=== PATIENT | female | born 1935 | race Caucasian/White ===

== ENCOUNTER 2017-10-17 23:53 | Inpatient (IN) | payer MEDICARE, OTHER ==
[~2017-10-17] VITALS: Ht 167.6 cm; Wt 63.3 kg
[2017-10-17 23:55] VITALS: BP 217/93; PULSE 94; RESP 18; TEMP 98.8; O2SAT 98
[2017-10-18] VITALS (10 sets, daily range): BP systolic 175–207; BP diastolic 83–104; PULSE 63–93; RESP 18–20; TEMP 97–98.8; O2SAT 95–98
[2017-10-18] MEDS ORDERED: SODIUM CHLORIDE 0.9% FLUSH 10 ML FLUSH IVF PRN (00:15)
--- NOTE | 2017-10-18 00:15 | PD ---
HPI Chief Complaint: Neuro Symptoms/ Deficits Time Seen by Provider: 00:14 Travel History International Travel<30 days: No Contact w/Intl Traveler<30days: No Traveled to known affect area: No History of Present Illness HPI 82-year-old female presents to the emergency department by private transportation for left lower extremity weakness since 2 PM on . This evening patient has had 2 falls when attempting to ambulate with assistance and walker use. Patient reports since she has otherwise needed to use counter or the wall to support her weight as she has had persistent weakness to the left lower extremity. Prior to afternoon she had been very independent and drove. Patient denies head injury. Patient denies neck pain back pain pelvic pain or extremity injury. Patient denies chest pain or palpitations or shortness breath. On when symptoms began she had nausea which has resolved and patient was reportedly dragging her leg at that time. Patient takes no blood thinning agents. Patient is under the care of Dr. Thompson and had recently been referred to cardiology Dr. Gates, patient reports she doesn't know why. Patient has not yet seen the service counter cashier and is not certain as to why she was referred to a service counter cashier. Patient has not been having any chest pains or rhythm disturbance or near syncope. Patient is not treated for hypertension or dyslipidemia. Patient denies diabetes. No tobacco use history. PFSH Past Medical History Narrative Medical denies pmh; no tobacco; nursing notes reviewed ?: Not Social History Tobacco Use: No Allergies-Medications (Allergen,Severity, Reaction): Coded Allergies: No Known Allergies (Verified Allergy, Unknown, 10/18/17) Reported Meds & Prescriptions Reported Meds & Active Scripts Active No Active Prescriptions or Reported Medications Review of Systems Except as stated in HPI: all other systems reviewed are Neg General / Constitutional: No: Fever, Chills Eyes: No: Diploplia, Blurred Vision, Photophobia, Visual changes HENT: No: Headaches, Lightheadedness, Neck Pain Cardiovascular: No: Chest Pain or Discomfort, Palpitations, Diaphoresis Respiratory: No: Shortness of Breath Gastrointestinal: Positive: Nausea (), No: Vomiting, Abdominal Pain Genitourinary: No: Decreased Urinary Output, Flank Pain Musculoskeletal: Positive: Weakness (LLE), No: Myalgias, Arthralgias, Cramping , Edema, Pain Skin: No Rash Neurologic: Positive: Weakness, Focal Abnormalities (LLE weakness), No: Dizziness, Syncope, Headache, Paresthesia, Seizures Psychiatric: No: Anxiety Endocrine: No: Heat Intolerance Hematologic/Lymphatic: No: Easy Bruising Physical Exam Narrative GENERAL: Well-developed well-nourished female in no acute distress no respiratory distress GCS 15 SKIN: Warm and dry. HEAD: Atraumatic. Normocephalic. Scalp soft nontender without soft tissue swelling and abrasion laceration or bony abnormalities EYES: Pupils equal and round. Extraocular muscles intact. No scleral icterus. No injection or drainage. ENT: No nasal bleeding or discharge. Mucous membranes pink and moist. Airway is patent. NECK: Trachea midline. No JVD. CARDIOVASCULAR: Irregularly irregular rate and rhythm. RESPIRATORY: No accessory muscle use. Clear to auscultation. Breath sounds equal bilaterally. GASTROINTESTINAL: Abdomen soft, non-tender, nondistended. Hepatic and splenic margins not palpable. MUSCULOSKELETAL: Extremities without clubbing, cyanosis, or edema. No obvious deformities. NEUROLOGICAL: Awake and alert. No obvious cranial nerve deficits. Motor grossly within normal limits with 5 out of 5 muscle strength in the arms and legs except for left lower extremity 4 over 5 motor strength. Sensory exam intact grossly. No pronator drift. Mild left lower extremity limb ataxia normal finger to nose. Normal speech. PSYCHIATRIC: Appropriate mood and affect; insight and judgment normal. Data Data Last Documented VS Vital Signs Date Time Temp Pulse Resp B/P (MAP) Pulse Ox O2 Delivery O2 Flow Rate FiO2 10/18/17 01:19 82 18 198/83 (121) 98 Room Air 10/17/17 23:55 98.8 Orders Orders Electrocardiogram (10/18/17 00:14) Prothrombin Time / Inr (Pt) (10/18/17 00:14) Act Partial Throm Time (Ptt) (10/18/17 00:14) Complete Blood Count With Diff (10/18/17 00:14) Comprehensive Metabolic Panel (10/18/17 00:14) Creatine Kinase (Cpk) (10/18/17 00:14) Troponin I (10/18/17 00:14) Urinalysis - C+S If Indicated (10/18/17 00:14) Ct Brain W/O Iv Contrast(Rout) (10/18/17 00:14) Chest, Single Ap (10/18/17 00:14) Ecg Monitoring (10/18/17 00:14) Iv Access Insert/Monitor (10/18/17 00:14) Oximetry (10/18/17 00:14) Blood Glucose (10/18/17 00:14) Sodium Chloride 0.9% Flush (Ns Flush) (10/18/17 00:15) Metoprolol Tartrate (Lopressor) (10/18/17 01:45) Metoprolol Tartrate (Lopressor) (10/18/17 09:00) Echo 2d Comp With Doppler (10/18/17 ) Place In Observation (10/18/17 ) Vital Signs (Adult) Q4H (10/18/17 01:44) Activity Oob With Assistance (10/18/17 01:44) Reprint Sorter / Telemetry .CONTINUOUS (10/18/17 01:44) Intake + Output OFE.QSHIFT (10/18/17 01:44) Diet Heart Healthy (10/18/17 Breakfast) Sodium Chlor 0.9% 1000 Ml Inj (Ns 1000 M (10/18/17 01:44) Sodium Chloride 0.9% Flush (Ns Flush) (10/18/17 01:45) Sodium Chloride 0.9% Flush (Ns Flush) (10/18/17 09:00) Ondansetron Inj (Zofran Inj) (10/18/17 01:45) Comprehensive Metabolic Panel (10/19/17 06:00) Complete Blood Count With Diff (10/19/17 06:00) Troponin I (10/18/17 06:00) Troponin I (10/18/17 12:00) Pt Request For Service (10/18/17 01:44) Case Management Consult (10/18/17 01:44) Heparin Inj (Heparin Inj) (10/18/17 09:00) Acetaminophen (Tylenol) (10/18/17 01:45) Acetamin-Hydrocod 325-5 Mg ([place] 5-325 (10/18/17 01:45) Morphine Inj (Morphine Inj) (10/18/17 01:45) Docusate Sodium-Senna (Minoo-Colace) (10/18/17 09:00) Magnesium Hydroxide Liq (Milk Of Magnesi (10/18/17 01:45) Sennosides (Senokot) (10/18/17 01:45) Bisacodyl Supp (Dulcolax Supp) (10/18/17 01:45) Lactulose Liq (Lactulose Liq) (10/18/17 01:45) Admit Order (Ed Use Only) (10/18/17 ) Reprint Sorter / Telemetry OFE.Q8H (10/18/17 01:54) Activity Bed Rest (10/18/17 01:54) Notify Dr: Other (10/18/17 01:54) Labs Laboratory Tests Test 10/18/17 00:45 White Blood Count 7.9 TH/MM3 Red Blood Count 4.88 MIL/MM3 Hemoglobin 14.5 GM/DL Hematocrit 44.4 % Mean Corpuscular Volume 91.0 FL Mean Corpuscular Hemoglobin 29.7 PG Mean Corpuscular Hemoglobin Concent 32.6 % Red Cell Distribution Width 13.4 % Platelet Count 333 TH/MM3 Mean Platelet Volume 8.1 FL Neutrophils (%) (Auto) 61.0 % Lymphocytes (%) (Auto) 25.7 % Monocytes (%) (Auto) 9.3 % Eosinophils (%) (Auto) 3.0 % Basophils (%) (Auto) 1.0 % Neutrophils # (Auto) 4.9 TH/MM3 Lymphocytes # (Auto) 2.0 TH/MM3 Monocytes # (Auto) 0.7 TH/MM3 Eosinophils # (Auto) 0.2 TH/MM3 Basophils # (Auto) 0.1 TH/MM3 CBC Comment DIFF FINAL Differential Comment Prothrombin Time 10.9 SEC Prothromb Time International Ratio 1.0 RATIO Activated Partial Thromboplast Time 27.1 SEC Urine Color STRAW Urine Turbidity SLIGHT Urine pH 7.0 Urine Specific [place] 1.008 Urine Protein NEG mg/dL Urine Glucose (UA) NEG mg/dL Urine Ketones NEG mg/dL Urine Occult Blood TRACE Urine Nitrite NEG Urine Bilirubin NEG Urine Leukocyte Esterase NEG Urine RBC 0-3 /hpf Urine WBC 0-2 /hpf Urine Squamous Epithelial Cells 0-5 /hpf Urine Amorphous Sediment FEW Urine Bacteria NONE /hpf Microscopic Urinalysis Comment CULT NOT INDICATED Blood Urea Nitrogen 21 MG/DL Creatinine 0.92 MG/DL Random Glucose 113 MG/DL Total Protein 7.2 GM/DL Albumin 3.5 GM/DL Calcium Level 10.2 MG/DL Alkaline Phosphatase 75 U/L Aspartate Amino Transf (AST/SGOT) 10 U/L Alanine Aminotransferase (ALT/SGPT) 17 U/L Total Bilirubin 0.3 MG/DL Sodium Level 137 MEQ/L Potassium Level 4.1 MEQ/L Chloride Level 104 MEQ/L Carbon Dioxide Level 27.1 MEQ/L Anion Gap 6 MEQ/L Estimat Glomerular Filtration Rate 58 ML/MIN Total Creatine Kinase 52 U/L Troponin I LESS THAN 0.02 NG/ML MDM Medical Decision Making Medical Screen Exam Complete: Yes Emergency Medical Condition: Yes Medical Record Reviewed: Yes Interpretation(s) CBC & BMP Diagram 10/18/17 00:45 Total Protein 7.2, Albumin 3.5, Calcium Level 10.2 H, Alkaline Phosphatase 75, Aspartate Amino Transf (AST/SGOT) 10 L, Alanine Aminotransferase (ALT/SGPT) 17, Total Bilirubin 0.[address] 10/18/1713 Signed Impressions: Service Date/Time: Wednesday, October 18, 2017 00:30 - CONCLUSION: 1. No acute findings in the brain. 2. 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 3. Bilateral maxillary and ethmoid sinus disease. Jamil Fleming MD Chest X-Ray 10/18/174 Signed Impressions: Service Date/Time: Wednesday, October 18, 2017 00:28 - CONCLUSION: Cardiomegaly. No focal infiltrates seen. Jamil Fleming MD EKG atrial fibrillation rate 77 incomplete right bundle branch block QS anteroseptally V1 to V3 and Q wave noted inferiorly in lead 3 and aVF Differential Diagnosis New-onset left lower extremity weakness, TIA, CVA, lumbar radiculopathy, cervical radiculopathy, HTN, a fib/flutter Narrative Course Patient placed on security monitor with continuous pulse oximetry IV access obtained and EKG performed which confirms security monitor atrial fibrillation with controlled ventricular rate; CT brain noncontrast ordered Specimen collected and sent for resulting Patient resting comfortably voicing no complaints or concerns at this time Patient is noted to have weakness of the left lower extremity 4 over [address] brain noncontrast shows old right lacunar infarct no acute infarct noted Patient will be admitted for new onset left lower extremity weakness that is persistent concerning for CVA with atrial fibrillation prior history of atrial fibrillation the patient and her spouse and hypertension again no history of hypertension and patient her spouse. Patient has been discussed with on-call medicine service with plan to admit as observation for TIA new-onset atrial fibrillation with controlled rate and hypertension Physician Communication Physician Communication discussed with Dr Gutierres --OBS Diagnosis Primary Impression: CVA (cerebral vascular accident) Additional Impressions: Atrial fibrillation HTN (hypertension) Admitting Information Admitting Physician Requests: Observation Scripts No Active Prescriptions or Reported Meds Marisabel Carpenter MD Oct 18, 2017 00:15
--- NOTE | 2017-10-18 00:39 | RADRPT ---
EXAM DATE/TIME: 10/18/2017 00:28 [facility] COMPARISON: No previous studies available for comparison. INDICATIONS : Syncope. MEDICAL HISTORY : None. SURGICAL HISTORY : None. ENCOUNTER: Initial ACUITY: 1 day PAIN SCORE: 2/10 LOCATION: Bilateral chest FINDINGS: A single view of the chest demonstrates the lungs to be symmetrically aerated without evidence of mas s, infiltrate or effusion. No evidence of pneumothorax. The heart is moderately enlarged. The cent ral bronchopulmonary markings well delineated. Orthopedic anchors in the proximal right humerus. CONCLUSION: Cardiomegaly. No focal infiltrates seen. Jamil Fleming MD on October 18, 2017 at 0:37 Board Certified Radiologist. This report was verified electronically.
[2017-10-18 00:52] LABS: GLUCOSE,URINE NEG (NEG); KETONE, URINE NEG (NEG); NITRITE,URINE NEG (NEG)
[2017-10-18 00:54] LABS: AUTOMATED NEUTROPHIL # 4.9 TH/MM3 (1.8-7.7); BASOPHIL # 0.1 TH/MM3 (0-0.2); EOSINOPHIL # 0.2 TH/MM3 (0-0.4); HEMATOCRIT 44.4 % (35.0-46.0); HEMO FLAGS DIFF FINAL; LYMPH % 25.7 % (9.0-44.0); MEAN CORPUSCULAR HEMOGLOBIN 29.7 PG (27.0-34.0); MEAN CORPUSCULAR HGB CONC 32.6 % (32.0-36.0); MONO % 9.3 % (0.0-8.0); PLATELET COUNT 333 TH/MM3 (150-450); RED BLOOD COUNT 4.88 MIL/MM3 (4.00-5.30); RED CELL DISTRIBUTION WIDTH 13.4 % (11.6-17.2); WHITE BLOOD COUNT 7.9 TH/MM3 (4.0-11.0)
--- NOTE | 2017-10-18 00:57 | RADRPT ---
EXAM DATE/TIME: 10/18/2017 00:30 [facility] COMPARISON: No previous studies available for comparison. INDICATIONS : Left leg weakness. Patients states she keeps falling. RADIATION DOSE: 59.93 CTDIvol (mGy) MEDICAL HISTORY : None SURGICAL HISTORY : None. ENCOUNTER: Initial ACUITY: 1 day PAIN SCALE: 0/10 LOCATION: cranial TECHNIQUE: Multiple contiguous axial images were obtained of the head. Using automated exposure control and adj ustment of the mA and/or kV according to patient size, radiation dose was kept as low as reasonably a chievable to obtain optimal diagnostic quality images. DICOM format image data is available electro nically for review and comparison. FINDINGS: CEREBRUM: The ventricles are normal for age. No evidence of midline shift, mass lesion, hemorrhage or acute in farction. 1 cm lacunar infarct in the right basal ganglia and head of caudate. No extra-axial fluid collections are seen. POSTERIOR FOSSA: The cerebellum and brainstem are intact. The 4th ventricle is midline. The cerebellopontine angle i s unremarkable. EXTRACRANIAL: The visualized portion of the orbits is intact. Mucosal thickening and partial opacification of mult iple bilateral ethmoid air cells and mucosal thickening in the dependent maxillary sinuses. SKULL: The calvaria is intact. No evidence of skull fracture. CONCLUSION: 1. No acute findings in the brain. 2. 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 3. Bilateral maxillary and ethmoid sinus disease. Jamil Fleming MD on October 18, 2017 at 0:52 Board Certified Radiologist. This report was verified electronically.
[2017-10-18 01:00] LABS: BLOOD, URINE TRACE (NEG); URINE COLOR STRAW (YELLW/STRAW); WBC, URINE 0-2 /hpf (0-5)
[2017-10-18 01:01] LABS: CHLORIDE 104 MEQ/L (98-107); COMMENT (UR) CULT NOT INDICATED; CULTURE IF INDICATED CULT NOT INDICATED; POTASSIUM 4.1 MEQ/L (3.5-5.1); RBC, URINE 0-3 /hpf (0-3); SODIUM (NA) 137 MEQ/L (136-145); SQUAMOUS EPITHELIAL CELL URINE 0-5 /hpf (0-5)
[2017-10-18 01:05] LABS: ANION GAP 6 MEQ/L (5-15); APTT (PATIENT) 27.1 SEC (24.3-30.1); BICARBONATE 27.1 MEQ/L (21.0-32.0); BLOOD UREA NITROGEN 21 MG/DL (7-18); PROTHROMBIN TIME - PATIENT 10.9 SEC (9.8-11.6)
[2017-10-18 01:08] LABS: ALT (GPT) 17 U/L (10-53); AST (GOT) 10 U/L (15-37); GLOMERULAR FILTRATION RATE 58 ML/MIN (>89)
[2017-10-18 01:10] LABS: TOTAL BILIRUBIN ADULT 0.3 MG/DL (0.2-1.0)
[2017-10-18 01:11] LABS: ALKALINE PHOSPHATASE 75 U/L (45-117)
[2017-10-18 01:19] LABS: CREATINE KINASE 52 U/L (26-192)
[2017-10-18] MEDS ORDERED: BISACODYL 10 MG SUPP RECTAL PRN (01:45)
[2017-10-18] MEDS ORDERED: METOPROLOL TARTRATE 25 MG TAB PO ONE (01:45)
[2017-10-18] MEDS ORDERED: MAGNESIUM HYDROXIDE SUSP 30 ML CUP PO PRN (01:45)
[2017-10-18] MEDS ORDERED: LACTULOSE SYRUP 20 GM/30 ML CUP PO PRN (01:45)
[2017-10-18] MEDS ORDERED: ACETAMINOPHEN/HYDROcodone 325 MG/5 MG TAB PO PRN (01:45)
[2017-10-18] MEDS ORDERED: MORPHINE SULFATE 4 MG/ML INJ IV PUSH PRN (01:45)
[2017-10-18] MEDS ORDERED: ONDANSETRON HCL 4 MG/2 ML VIAL IVP PRN (01:45)
[2017-10-18] MEDS ORDERED: SODIUM CHLORIDE 0.9% FLUSH 10 ML FLUSH IV FLUSH PRN (01:45)
[2017-10-18] MEDS ORDERED: SENNOSIDES 8.6 MG TAB PO PRN (01:45)
[2017-10-18] MEDS ORDERED: ACETAMINOPHEN 325 MG TAB PO PRN (01:45)
[2017-10-18] MEDS: SODIUM CHLOR 0.9% 1000 ML INJ 1,000 ML IV SCH ×3 (02:09→17:34)
[2017-10-18] MEDS ORDERED: MORPHINE SULFATE 2 MG/ML INJ IV PRN (02:15)
[2017-10-18] MEDS: METOPROLOL TARTRATE 25 MG TAB PO SCH ×4 (08:23→20:36)
[2017-10-18] MEDS: DOCUSATE SODIUM 50 MG/SENNA 8.6 MG TAB PO SCH ×2 (08:24→20:30)
[2017-10-18] MEDS: SODIUM CHLORIDE 0.9% FLUSH 10 ML FLUSH IV FLUSH SCH ×2 (08:24→20:42)
[2017-10-18] MEDS ORDERED: HEPARIN SODIUM - SQ 10,000 UNITS/ML VIAL SQ SCH (09:00)
--- NOTE | 2017-10-18 11:29 | HHI.HP ---
HPI Service [facility] Primary Care Physician Unknown Admission Diagnosis CVA, afib-new onset, htn Diagnoses: (1) CVA (cerebral vascular accident) (2) HTN (hypertension) (3) Atrial fibrillation Chief Complaint: Left sided weakness Fall x 3 Travel History International Travel<30 Days: No Contact w/Intl Traveler <30 Da: No Traveled to Known Affected Are: No History of Present Illness Written by Merly Holcomb, acting as scribe for Dr. Holguin on 10/18/17 at 11: 29. Mrs. Green is an 82-year-old female patient with a known medical history of HTN and hyperlipidemia who presented to the ED with left sided weakness and falls x 3. Patient states that around at 1400 she developed left lower extremity weakness and dizziness at work. She states she lost her balance and caught herself, did not hit her head or loose consciousness. Patient states she was taken home and rest overnight. On Friday she rested all day at home with continued left sided weakness. On Friday around dinner time she fell again in the kitchen, did not hit her head and no LOC at that time. Once again as patient was using the restroom later Friday night she fell again and at that time also had some memory problems which prompted her presentation to the ED. Patient denies any recent illness including any fever, chills, headache, vision changes, diplopia, loss of consciousness, sore throat, shortness of breath, ab pain, n/v/d or dysuria. Review of Systems Constitutional: DENIES: Fever, Chills Eyes: DENIES: Blurred vision, Vision loss, Double Vision Ears, nose, mouth, throat: DENIES: Throat pain Respiratory: DENIES: Cough, Shortness of breath Cardiovascular: DENIES: Chest pain, Lower Extremity Edema Gastrointestinal: DENIES: Abdominal pain, Black stools, Bloody stools, Constipation, Diarrhea, Nausea, Vomiting Neurologic: COMPLAINS OF: Abnormal gait, Poor Balance, DENIES: Headache Psychiatric: DENIES: Anxiety Except as stated in HPI: all other systems reviewed are Neg Past Family Social History Past Medical History Hypertension Hyperlipidemia Past Surgical History Hysterectomy Reported Medications Active No Active Prescriptions or Reported Medications Allergies: Coded Allergies: No Known Allergies (Verified Allergy, Unknown, 10/18/17) Family History Maternal medical history significant for cardiovascular disease. Social History Denies any current tobacco use. Admits to social drinking. Denies any illicit drug use. Physical Exam Vital Signs Vital Signs Date Time Temp Pulse Resp B/P (MAP) Pulse Ox O2 Delivery O2 Flow Rate FiO2 10/18/17 07:50 98.8 77 20 195/90 (125) 95 10/18/17 03:00 97.3 76 20 197/97 (130) 96 10/18/17 02:45 93 10/18/17 02:28 84 18 98 10/18/17 01:19 82 18 198/83 (121) 98 Room Air 10/18/17 00:19 97 10/18/17 00:14 18 97 Room Air 10/17/17 23:55 98.8 94 18 217/93 (134) 98 Physical Exam GENERAL: This is a well-nourished, well-developed female patient, lying in bed in no apparent distress. SKIN: No rashes, ecchymoses or lesions. Warm and dry. HEENT: Atraumatic. Normocephalic. Pupils equal round and reactive. Extraocular motions intact. No scleral icterus. No injection or drainage. Nose without bleeding, purulent drainage or septal hematoma. Throat without erythema, tonsillar hypertrophy or exudate. Uvula midline. Airway patent. NECK: Trachea midline. No JVD. Supple. CARDIOVASCULAR: Irregular irregular rhythm. Without murmurs, gallops, or rubs. RESPIRATORY: Clear to auscultation. Breath sounds equal bilaterally. No wheezes , rales, or rhonchi. GASTROINTESTINAL: Abdomen soft, non-tender, nondistended. No guarding. MUSCULOSKELETAL: Extremities without clubbing, cyanosis, or edema. No joint tenderness, effusion, or edema noted. NEUROLOGICAL: Awake and alert. Cranial nerves II through XII intact. Motor and sensory grossly within normal limits. Five out of 5 muscle strength in right side, all muscle groups. Four out of 5 muscle strength in both left upper and lower extremities. Normal speech. Laboratory Laboratory Tests Test 10/18/17 00:45 10/18/17 06:50 White Blood Count 7.9 Red Blood Count 4.88 Hemoglobin 14.5 Hematocrit 44.4 Mean Corpuscular Volume 91.0 Mean Corpuscular Hemoglobin 29.7 Mean Corpuscular Hemoglobin Concent 32.6 Red Cell Distribution Width 13.4 Platelet Count 333 Mean Platelet Volume 8.1 Neutrophils (%) (Auto) 61.0 Lymphocytes (%) (Auto) 25.7 Monocytes (%) (Auto) 9.3 Eosinophils (%) (Auto) 3.0 Basophils (%) (Auto) 1.0 Neutrophils # (Auto) 4.9 Lymphocytes # (Auto) 2.0 Monocytes # (Auto) 0.7 Eosinophils # (Auto) 0.2 Basophils # (Auto) 0.1 CBC Comment DIFF FINAL Differential Comment Prothrombin Time 10.9 Prothromb Time International Ratio 1.0 Activated Partial Thromboplast Time 27.1 Urine Color STRAW Urine Turbidity SLIGHT Urine pH 7.0 Urine Specific [place] 1.008 Urine Protein NEG Urine Glucose (UA) NEG Urine Ketones NEG Urine Occult Blood TRACE Urine Nitrite NEG Urine Bilirubin NEG Urine Leukocyte Esterase NEG Urine RBC 0-3 Urine WBC 0-2 Urine Squamous Epithelial Cells 0-5 Urine Amorphous Sediment FEW Urine Bacteria NONE Microscopic Urinalysis Comment CULT NOT INDICATED Blood Urea Nitrogen 21 Creatinine 0.92 Random Glucose 113 Total Protein 7.2 Albumin 3.5 Calcium Level 10.2 Alkaline Phosphatase 75 Aspartate Amino Transf (AST/SGOT) 10 Alanine Aminotransferase (ALT/SGPT) 17 Total Bilirubin 0.3 Sodium Level 137 Potassium Level 4.1 Chloride Level 104 Carbon Dioxide Level 27.1 Anion Gap 6 Estimat Glomerular Filtration Rate 58 Total Creatine Kinase 52 Troponin I LESS THAN 0.02 LESS THAN 0.02 Result Diagram: 10/18/17 0045 10/18/17 0045 Imaging Last Impressions Head CT 10/18/1713 Signed Impressions: Service Date/Time: Wednesday, October 18, 2017 00:30 - CONCLUSION: 1. No acute findings in the brain. 2. 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 3. Bilateral maxillary and ethmoid sinus disease. Jamil Fleming MD Chest X-Ray 10/18/1713 Signed Impressions: Service Date/Time: Wednesday, October 18, 2017 00:28 - CONCLUSION: Cardiomegaly. No focal infiltrates seen. MD Shawn Wilson VTE Risk Assessment Caprini VTE Risk Assessment: Mod/High Risk (score >= 2) Caprini Risk Assessment Model Point Value = 1 Point Value = 2 Point Value = 3 Point Value = 5 Age 41-60 Minor surgery BMI > 25 kg/m2 Swollen legs Varicose veins or History of unexplained or recurrent spontaneous Oral contraceptives or hormone replacement Sepsis (< 1 month) Serious lung disease, including pneumonia (< 1 month) Abnormal pulmonary function Acute myocardial infarction Congestive heart failure (< 1 month) History of inflammatory bowel disease Medical patient at bed rest Age 61-74 Arthroscopic surgery Major open surgery (> 45 min) Laparoscopic surgery (> 45 min) Malignancy Confined to bed (> 72 hours) Immobilizing plaster cast Central venous access Age >= 75 History of VTE Family history of VTE Factor V Leiden Prothrombin [id number] Lupus anticoagulant Anticardiolipin antibodies Elevated serum homocysteine Heparin-induced thrombocytopenia Other congenital or acquired thrombophilia Stroke (< 1 month) Elective arthroplasty Hip, pelvis, or leg fracture Acute spinal cord injury (< 1 month) Prophylaxis Regimen Total Risk Factor Score Risk Level Prophylaxis Regimen 0-1 Low Early ambulation 2 Moderate Order ONE of the following: *Sequential Compression Device (SCD) *Heparin 5000 units SQ BID 3-4 Higher Order ONE of the following medications: *Heparin 5000 units SQ TID *Enoxaparin/Lovenox 40 mg SQ daily (WT < 150 kg, CrCl > 30 mL/min) *Enoxaparin/Lovenox 30 mg SQ daily (WT < 150 kg, CrCl > 10-29 mL/min) *Enoxaparin/Lovenox 30 mg SQ BID (WT < 150 kg, CrCl > 30 mL/min) AND/OR *Sequential Compression Device (SCD) 5 or more Highest Order ONE of the following medications: *Heparin 5000 units SQ TID (Preferred with Epidurals) *Enoxaparin/Lovenox 40 mg SQ daily (WT < 150 kg, CrCl > 30 mL/min) *Enoxaparin/Lovenox 30 mg SQ daily (WT < 150 kg, CrCl > 10-29 mL/min) *Enoxaparin/Lovenox 30 mg SQ BID (WT < 150 kg, CrCl > 30 mL/min) AND *Sequential Compression Device (SCD) Assessment and Plan Assessment and Plan Mrs. Green is an 82-year-old female patient with a known medical history of HTN and hyperlipidemia who presented to the ED with left sided weakness and falls x 3. Rule out acute CVA vs TIA suspect secondary to atrial fibrillation vs uncontrolled hypertension, presence left sided weakness and falls at home Atrial fibrillation, new onset CBC reviewed which is essentially unremarkable. BMP unremarkable. EKG reviewed with presence of atrial fibrillation, HR 77, controlled. Continue cardiac telemetry, monitor for any presence of cardiac telemetry. Brain CT reviewed showing no acute hemorrhage or mass effect. Old small lacunar infarcts in the right striatum. CXR reviewed showing cardiomegaly. No focal infiltrates seen. MRI/MRA brain ordered and pending. Follow. Aspirin 325 mg PO daily scheduled. Consider anticoagulation but will defer to neurology on this - may be high risk due to falls. Supplemental O2 to keep sats >92%. Supportive care. Lipid profile ordered. Follow. ECHO ordered and pending. Carotid ultrasound ordered was well. Follow. Consult placed to neurology, appreciate further input and recommendations. PT evaluation ordered, appreciate input. Nursing bedside swallow ordered. Hypertension, chronic: Systolic BP 190's, allow some permissive hypertension. Will start on Metoprolol 25 mg PO BID. Monitor BP trends. Dyslipidemia: Start on Atorvastatin. DVT Prophylaxis: SCDs. Heparin. This note was transcribed by sujatha Holcomb. I, Dr. Tamiko Holguin personally performed the history, physical exam, and medical decision making; and confirmed the accuracy of the information in the transcribed note. Authenticated by Dr. Tamiko Holguin on 10/18/17 at 12:52. Merly Holcomb Oct 18, 2017 11:29 Tamiko Holguin MD Oct 18, 2017 12:52
[2017-10-18] MEDS ORDERED: ASPIRIN 325 MG TAB PO SCH (12:00)
--- NOTE | 2017-10-18 12:51 | RADRPT ---
EXAM DATE/TIME: 10/18/2017 12:11 [facility] COMPARISON: No previous studies available for comparison. INDICATIONS : Transischemic attack. MEDICAL HISTORY : Hypercholesterolemia. Hypertension. Afib. SURGICAL HISTORY : Tonsillectomy. Hysterectomy. ENCOUNTER: Initial ACUITY: 1 day PAIN SCORE: 0/10 LOCATION: Bilateral neck PEAK SYSTOLIC VELOCITIES (cm/sec): ICA/CCA RATIO: Right: 1.4 Left: 0.9 ICA: Right: 60 Left: 63 CCA: Right: 44 Left: 69 ECA: Right: 74 Left: 62 VERTEBRAL: Right: 54 antegrade Left: 67 antegrade Elevated flow velocities and ICA/CCA ratios have been found to correlate with increased degrees of vessel stenosis, calculated as percentage of diameter relative to a normal segment of distal ICA/CCA FINDINGS: RIGHT CAROTID: No significant stenosis is visualized. The waveforms are within normal limits. LEFT CAROTID: No significant stenosis is visualized. The waveforms are within normal limits. VERTEBRAL ARTERIES: Antegrade flow is seen in both vertebral arteries. MISCELLANEOUS: None. CONCLUSION: No evidence of hemodynamically significant carotid stenosis. Sarabjit Damico MD on October 18, 2017 at 12:48 Board Certified Radiologist. This report was verified electronically.
--- NOTE | 2017-10-18 15:32 | ECHRPT ---
Indication: Cardiomyopathy, unspecified CONCLUSIONS Normal left ventricular size. EF=65% Wall thickness is measured at the upper limits of normal. The aortic root and proximal ascending aorta are not well visualized. No mitral valve stenosis [id number] mitral valve regurgitation. mild to mod aortic valve regurgitation. There is trace tricuspid valve regurgitationTrivial pulmonary valve regurgitation. The transthoracic study is normal by two-dimensional, color flow imaging and Doppler interrogation. BP: / HR: Rhythm: MEASUREMENTS (Male / Female) Normal Values Technical Quality:Good 2D ECHO LV Diastolic Diameter PLAX 3.2 cm 4.2 - 5.9 / 3.9 - 5.3 cm LV Systolic Diameter PLAX 2.4 cm IVS Diastolic Thickness 1.5 cm 0.6 - 1.0 / 0.6 - 0.9 cm LVPW Diastolic Thickness 1.1 cm 0.6 - 1.0 / 0.6 - 0.9 cm LV Relative Wall Thickness 0.8 RV Internal Dim ED PLAX 1.9 cm M-MODE Aortic Root Diameter MM 3.6 cm LA Systolic Diameter MM 3.6 cm LA Ao Ratio MM 1.0 AV Cusp Separation MM 1.6 cm DOPPLER AI Peak Velocity 491.0 cm/s AI Peak Gradient 96.4 mmHg AI Pressure Half Time 904.0 ms Mitral E Point Velocity 170.0 cm/s Mitral A Point Velocity 118.0 cm/s Mitral E to A Ratio 1.4 FINDINGS LEFT VENTRICLE Normal left ventricular size. Wall thickness is measured at the upper limits of normal. The left ventricular systolic function is normal with an estimated ejection fraction in the range of 60-65%. RIGHT VENTRICLE Normal right ventricular size and systolic function. LEFT ATRIUM The left atrial size is normal. RIGHT ATRIUM The right atrial size is normal. ATRIAL SEPTUM Normal atrial septal thickness without atrial level shunting by limited color doppler interrogation. AORTA The aortic root and proximal ascending aorta are not well visualized. MITRAL VALVE Structurally normal mitral valve. No mitral valve stenosis [id number] mitral valve regurgitati on. AORTIC VALVE Trileaflet aortic valve. Trace aortic valve regurgitation. TRICUSPID VALVE Structurally normal tricuspid valve. There is trace tricuspid valve regurgitation PULMONARY VALVE Trivial pulmonary valve regurgitation. VESSELS The inferior vena cava is normal in size. PERICARDIUM No pericardial effusion. Hadley Zayas MD, FACC, [facility] [place] (Electronically Signed) Final Date:18 October 2017 15:31
[2017-10-18] MEDS ORDERED: ENALAPRILAT 1.25 MG/ML VIAL IV PUSH PRN (16:00)
--- NOTE | 2017-10-18 16:09 | EKG ---
Date Performed: 10/18/2017 Time Performed: 00:26:20 PTAGE: 82 years EKG: ATRIAL FIBRILLATION INCOMPLETE RIGHT BUNDLE BRANCH BLOCK INFERIOR MYOCARDIAL INFARCTION ABN ORMAL ECG NO PREVIOUS TRACING DOCTOR: Eugenio Disla Interpretating Date/Time 10/18/2017 16:07:53
--- NOTE | 2017-10-18 16:32 | RADRPT ---
EXAM DATE/TIME: 10/18/2017 15:40 [facility] COMPARISON: CT BRAIN W/O CONTRAST, October 18, 2017, 0:30. INDICATIONS : TIA. Left lower extremity weakness. MEDICAL HISTORY : Hypercholesterolemia. Hypertension. Afib. SURGICAL HISTORY : Tonsillectomy. Hysterectomy. ENCOUNTER: Subsequent ACUITY: 3 day PAIN SCORE: 3/10 LOCATION: cranial TECHNIQUE: Multiplanar, multisequence MRI of the brain was performed without contrast. FINDINGS: Several subcentimeter foci of her stricture diffusion are seen in the periventricular white matter of the high right frontal and parietal lobes. A single 4 mm focus is seen in the left parietal lobe as well. Otherwise chronic periventricular white matter changes. No intracranial hemorrhage or hematoma. No ma ss, mass effect or midline shift. Mucoperiosteal thickening seen of the paranasal sinuses. There are small fluid levels in both maxilla ry air cells. CONCLUSION: 1. Small acute periventricular white matter infarcts as above, right worse on left. 2. Chronic periventricular white matter changes. 3. Acute on chronic appearing paranasal sinusitis. Crow Palomino MD on October 18, 2017 at 16:27 Board Certified Radiologist. This report was verified electronically.
--- NOTE | 2017-10-18 16:33 | MB ---
cc: MARTHA LO M.D. DATE OF CONSULTATION: 10/18/2017. HISTORY OF PRESENT ILLNESS: 82-year-old right-handed woman with hypercholesterolemia. She does not take an aspirin a day. About two days ago, she felt somewhat dizzy, a little bit of spinning, fell several times at home and was a little confused and had some mild hallucinations. She thought some woman was in the house who was not there, possibly her daughter. She came into the hospital. She seems to be feeling better but she did notice her left leg is not working entirely normal. REVIEW OF SYSTEMS: She denies any history of hypertension, diabetes, myocardial infarction, stents, angioplasty, atrial fibrillation, coumadin, renal, hepatic, or pulmonary disease, thyroid disease, lupus, ulcer, cancer, seizure or stroke. No headache, chest pain or palpitations. SOCIAL HISTORY: She is not a smoker. Occasionally has a drink. Lives with her . FAMILY HISTORY: Family history is negative for cancer, seizure or stroke. MEDICATIONS AT HOME: She does not take an aspirin a day. She does not take any medicines at home. ALLERGIES: NO KNOWN DRUG ALLERGIES. MEDICATIONS HERE: 1. She has been put on 325 of aspirin a day. 2. Lipitor. PHYSICAL EXAMINATION: VITAL SIGNS: Afebrile, 72, 20, 207/104 to 217/93. NECK: There are no carotid or vertebral bruits. HEART: Regular rhythm. I do not detect a murmur. NEUROLOGICAL EXAMINATION: Pupils are equal. Visual wallace are full. Extraocular movements intact without nystagmus. Face is symmetric with normal sensation. Tongue was midline. There is no drift. She had normal strength in upper and lower extremities bilaterally. DTRs are trace to absent throughout. Toes are downgoing bilaterally. Pin prick was intact throughout. She is not ataxic on [id number] or atiw-hl-[id number]. When she walks however, she favors that left leg a little bit and lying on the bed, her left leg wound up off the bed two times, although she was way over on the left side of the bed. Double simultaneous stimuli was normal in bilateral lower extremities. LABORATORY STUDIES: CBC was normal. Basic metabolic profile was normal. Liver function tests normal. Troponin was negative. Albumin normal. Cholesterol is pending. Urinalysis was negative. Coags were normal. CBC normal. IMAGING STUDIES: Chest x-ray shows cardiomegaly, negative otherwise. CT scan of the brain: Old white striatum lacunar infarct. Carotid ultrasound: Negative. MRI was just performed but it is not on the system yet. Review of the CT films, the CT does show a significant old right slightly lateral to the posterior limiting internal capsule, large lacunar-type infarct. EKGS: EKG: Telemetry appears to be sinus rhythm, possibly some PACs, not definite atrial fibrillation, although it was called as possible atrial fibrillation. IMPRESSION: It looks like she probably has had a stroke and we will have to see what the MRI shows before we decide on further recommendations. Keep her on IV hydration. Keep her on the aspirin for now. She has been started on a statin. I will be following her with you in the hospital, but she is a little bit off in that left lower extremity and a fall. If she is found to have atrial fibrillation, there is just some question if she could have certainly anticoagulation depending on the results of the MRI. MD RENO Lara/MAGGI /4:07 PM /4:27 PM
[2017-10-18] MEDS ORDERED: SODIUM CHLOR 0.9% 1000 ML INJ 1,000 ML IV SCH (16:47)
--- NOTE | 2017-10-18 16:47 | RADRPT ---
EXAM DATE/TIME: 10/18/2017 15:40 [facility] COMPARISON: US CAROTID ARTERIES, October 18, 2017, 12:11. MRI BRAIN W/O CONTRAST, October 18, 2017, 15:40. INDICATIONS : TIA. Left lower extremity weakness. MEDICAL HISTORY : Hypercholesterolemia. Hypertension. Afib. SURGICAL HISTORY : Tonsillectomy. Hysterectomy. ENCOUNTER: Subsequent ACUITY: 3 day PAIN SCORE: 3/10 LOCATION: cranial Please note a normal MRA of the brain does not entirely exclude the possibility of a small aneurysm, nor the possibility of distal intracranial vessel disease. TECHNIQUE: 3D time of flight MRA was performed. Source images, multiplanar STS MIP, and 3D volume MIP reconstru ctions were reviewed. FINDINGS: Anterior and middle cerebral arteries are patent. There is focal moderate stenosis at the origin of t he left and right middle cerebral arteries as well as multifocal narrowing of the bilateral posterior cerebral and distal right MCA branches. The vertebral arteries, superior cerebellar and anterior inf erior cerebellar arteries as well as the basilar artery are patent. Internal carotid arteries are pat ent. CONCLUSION: No evidence for intracranial aneurysm or occlusion. Multifocal stenoses are identified most pronounce d at the origin of the bilateral middle cerebral arteries. Inderjit Newman MD on October 18, 2017 at 16:42 Board Certified Radiologist. This report was verified electronically.
[2017-10-18] MEDS ORDERED: IOHEXOL 350 MG/ML 10 ML VIAL (for RAD DIAG) IVCONTRAST ONE (18:21)
[2017-10-18] MEDS ORDERED: APIXABAN 5 MG TABLET PO ONE (18:45)
[2017-10-18 19:02] LABS: HDL CHOLESTEROL 59.5 MG/DL (40.0-60.0); LDL CHOLESTEROL 181 MG/DL (0-99)
--- NOTE | 2017-10-18 19:08 | MB ---
cc: TRUDY BRICEÑO M.D., WING YI M.D. DATE OF CONSULTATION: 10/18/2017. HISTORY OF PRESENT ILLNESS: Norma is a very pleasant 82-year-old lady who was brought to the emergency room yesterday after being noted by a family friend to have left lower extremity weakness beginning about 2:00 p.m. on the , two falls. Currently she is returning back from more radiologic imaging in a wheelchair. She appears in no acute distress. Denies chest pain, fevers, chills, cough, GI or bleeding, paroxysmal nocturnal dyspnea, orthopnea. PAST MEDICAL HISTORY: 1. Hypertension. 2. Hyperlipidemia. ALLERGIES: NONE. MEDICATIONS IN THE HOSPITAL: 1. Eliquis 5 milligrams twice a day. 2. Atorvastatin 40 at bedtime. 3. Metoprolol 25 q. 12 hours. 4. Heparin 5000 subcutaneous q. 12 hours. PHYSICAL EXAMINATION: VITAL SIGNS: Blood pressure 193/88, pulse 67, respiratory rate 20, temperature 97.0. GENERAL: She is alert and oriented times three and in no acute distress. NECK: The neck is supple. No jugular venous distention. No bruits. CARDIOVASCULAR EXAM: S1-S2. No murmurs, rubs or gallops. LUNGS: Clear to auscultation bilaterally. ABDOMEN: The abdomen is soft, nontender and nondistended with positive bowel sounds. EXTREMITIES: No lower extremity edema. LABS: White count 7.9, hemoglobin 14.5, hematocrit 44.4, platelet count 333,000. Sodium 137, potassium 4.1, chloride 104, bicarbonate 27.1, BUN 21, creatinine 0.92. Troponin less than 0.02 x3. AST 10, ALT 17. TSH 2.70. INR is 1.0. CARDIOLOGY STUDIES: She had an echocardiogram today which showed an ejection fraction of 65%, mild to moderate aortic insufficiency, trace tricuspid regurgitation, upper limit of normal wall thickness. EKG shows atrial fibrillation at a rate of 77 beats per minute, nonspecific S-T-T wave changes, anteroseptal Q waves. IMAGING STUDIES: Head MRA shows no evidence of intracranial aneurysm or occlusion, multifocal stenoses identified most pronounced at the origin of the bilateral middle cerebral artery. Carotid artery ultrasound shows no evidence of hemodynamically significant carotid stenosis. Brain MRI shows small acute periventricular white matter changes, acute on chronic paranasal sinusitis. Several sub-centimeter foci of stricture or diffusion seen at the periventricular white matter over the high right frontal and parietal lobes. A single 4 mm focus is seen in the left parietal lobe as well. Head CT shows no acute findings in the brain. 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 Bilateral maxillary and ethmoid sinus disease. Chest x-ray shows cardiomegaly and no acute infiltrates. DIAGNOSES: She has the following diagnoses: 1. CVA. 2. Atrial fibrillation, which is new onset. 3. Hypertension. 4. Cerebrovascular disease. DISCUSSION: At this point in time, anticoagulation and blood pressure parameters will need to be determined by neurology, Dr. Herrera. The patient is currently on Eliquis, Atorvastatin 40 at bedtime and metoprolol 25 q. 12 hours. I will attempt to notify Dr. Gates for follow up. This patient was scheduled to see Dr. Gates as an outpatient. MD KATIANA Alba/JCNahomy /6:53 PM /7:01 PM
--- NOTE | 2017-10-18 19:26 | RADRPT ---
EXAM DATE/TIME: 10/18/2017 18:03 [facility] COMPARISON: CTA BRAIN W 3D RECON, October 18, 2017, 18:03. MRA BRAIN W/O CONTRAST, October 18, 2017, 15:40. M RI BRAIN W/O CONTRAST, October 18, 2017, 15:40. US CAROTID ARTERIES, October 18, 2017, 12:11. CT BRAIN W/O CONTRAST, October 18, 2017, 0:30. INDICATIONS : Dizziness, falls, mild hallucinations, confusion, left leg weakness. IV CONTRAST: 75 cc Omnipaque 350 (iohexol) IV ; Cumulative dose for multiple exams. RADIATION DOSE: 43.07 CTDIvol (mGy) ; Combined studies MEDICAL HISTORY : Cardiovascular disease. Hypercholesterolemia. Hypertension.Atrial-Fib SURGICAL HISTORY : Tonsillectomy. Hysterectomy. ENCOUNTER: Initial ACUITY: 2 days PAIN SCALE: 0/10 LOCATION: neck Elevated flow velocities and ICA/CCA ratios have been found to correlate with increased degrees of vessel stenosis, calculated as percentage of diameter relative to a normal segment of distal ICA/CCA. TECHNIQUE: Volumetric scanning was performed using a multirow detector CT scanner. The data was post processed with a variety of visualization algorithms including full-volume maximum intensity projection, multip lanar sliding thin-slab reformation, curved-planar reformation, and surface-rendering techniques. Us ing automated exposure control and adjustment of the mA and/or kV according to patient size, radiatio n dose was kept as low as reasonably achievable to obtain optimal diagnostic quality images. DICOM f ormat image data is available electronically for review and comparison. FINDINGS: Study is motion degraded. AORTIC ARCH: There is a three-vessel origin of the great vessels from the aorta. No evidence of ostial narrowing. RIGHT CAROTID: The common carotid artery is intact. The carotid bulb has mild calcified plaque without ulceration or narrowing. The internal carotid artery lumen is smooth without stenosis. The external carotid arter y is intact. LEFT CAROTID: The common carotid artery is intact. The carotid bulb has mild calcified plaque without ulceration o r narrowing. The internal carotid artery lumen is smooth without stenosis. The external carotid art yoan is intact. VERTEBRALS: The vertebral arteries have a symmetric diameter. No stenotic lesions are seen. CONCLUSION: Mild atherosclerosis of both carotid bifurcations. No stenotic areas are demonstrated. Crow Palomino MD on October 18, 2017 at 19:23 Board Certified Radiologist. This report was verified electronically.
--- NOTE | 2017-10-18 19:28 | RADRPT ---
EXAM DATE/TIME: 10/18/2017 18:03 [facility] COMPARISON: MRA BRAIN W/O CONTRAST, October 18, 2017, 15:40. INDICATIONS : Dizziness, falls, mild hallucinations, confusion, left leg weakness. IV CONTRAST: 75 cc Omnipaque 350 (iohexol) IV ; Cumulative dose for multiple exams. RADIATION DOSE: 43.07 CTDIvol (mGy) ; Combined studies MEDICAL HISTORY : Hypercholesterolemia. Cardiovascular disease Hypertension.A-Fib SURGICAL HISTORY : Tonsillectomy. Hysterectomy. ENCOUNTER: Initial ACUITY: 2 days PAIN SCALE: 0/10 LOCATION: cranial TECHNIQUE: Volumetric scanning was performed using a multi-row detector CT scanner. The data was post processed with a variety of visualization algorithms including full volume maximum intensity projection, multi -planar sliding thin slab reformation, curved planar reformation, and surface rendering techniques. Using automated exposure control and adjustment of the mA and/or kV according to patient size, radiat ion dose was kept as low as reasonably achievable to obtain optimal diagnostic quality images. DICO M format image data is available electronically for review and comparison. FINDINGS: There is excellent visualization of the major intracranial arteries out to the second-order branch ve ssels. There is no evidence for aneurysm, vessel truncation or stenosis, and no evidence for vascula r malformation. CONCLUSION: No significant narrowing by CT. Crow Palomino MD on October 18, 2017 at 19:25 Board Certified Radiologist. This report was verified electronically.
[2017-10-18] MEDS: ATORVASTATIN 40 MG TAB PO SCH (20:30)
[2017-10-19] VITALS (9 sets, daily range): BP systolic 148–210; BP diastolic 70–93; PULSE 74–109; RESP 18–20; TEMP 97.3–98.7; O2SAT 94–97
[2017-10-19] MEDS: SODIUM CHLOR 0.9% 1000 ML INJ 1,000 ML IV SCH ×2 (05:24→17:45)
[2017-10-19 07:12] LABS: AUTOMATED NEUTROPHIL # 4.7 TH/MM3 (1.8-7.7); BASOPHIL # 0.1 TH/MM3 (0-0.2); BASOPHIL % 1.1 % (0.0-2.0); EOSINOPHIL # 0.1 TH/MM3 (0-0.4); EOSINOPHIL % 0.9 % (0.0-4.0); HEMATOCRIT 44.4 % (35.0-46.0); HEMO FLAGS DIFF FINAL; LYMPH % 24.5 % (9.0-44.0); LYMPHOCYTE # 1.7 TH/MM3 (1.0-4.8); MEAN CELL VOLUME 91.6 FL (80.0-100.0); MEAN CORPUSCULAR HEMOGLOBIN 30.6 PG (27.0-34.0); MEAN CORPUSCULAR HGB CONC 33.4 % (32.0-36.0); MONO % 5.7 % (0.0-8.0); NEUT % 67.8 % (16.0-70.0); PLATELET COUNT 324 TH/MM3 (150-450); RED BLOOD COUNT 4.85 MIL/MM3 (4.00-5.30); RED CELL DISTRIBUTION WIDTH 13.3 % (11.6-17.2)
[2017-10-19 07:24] LABS: CHLORIDE 106 MEQ/L (98-107); SODIUM (NA) 135 MEQ/L (136-145)
[2017-10-19 07:38] LABS: ALKALINE PHOSPHATASE 74 U/L (45-117); ALT (GPT) 15 U/L (10-53); ANION GAP 8 MEQ/L (5-15); AST (GOT) 11 U/L (15-37); BICARBONATE 21.1 MEQ/L (21.0-32.0); BLOOD UREA NITROGEN 13 MG/DL (7-18); GLOMERULAR FILTRATION RATE 94 ML/MIN (>89); TOTAL BILIRUBIN ADULT 0.8 MG/DL (0.2-1.0)
[2017-10-19] MEDS ORDERED: PNEUMOCOCCAL POLYVALENT INJ 25 MCG/0.5 ML SYR IM ONE (09:00)
[2017-10-19] MEDS ORDERED: INFLUENZA VIRUS VACCINE (QUADRIVALENT) 0.5 ML SYR IM ONE (09:00)
[2017-10-19 09:03] LABS: TOTAL PROTEIN SPE 7.2 GM/DL (6.0-7.6)
[2017-10-19] MEDS: METOPROLOL TARTRATE 25 MG TAB PO SCH ×2 (09:42→20:59)
[2017-10-19] MEDS: APIXABAN 5 MG TABLET PO SCH ×2 (09:42→20:59)
[2017-10-19] MEDS: SODIUM CHLORIDE 0.9% FLUSH 10 ML FLUSH IV FLUSH SCH ×2 (09:43→20:59)
[2017-10-19] MEDS: DOCUSATE SODIUM 50 MG/SENNA 8.6 MG TAB PO SCH ×2 (09:43→20:59)
[2017-10-19 10:16] LABS: HEMOGLOBIN A1a 1.4 %; HEMOGLOBIN A1b 0.8 %; HEMOGLOBIN Ao 84.1 %; HEMOGLOBIN F 1.6 %; HEMOGLOBIN LA1C 1.7 %; HEMOGLOBIN P3 3.9 %
--- NOTE | 2017-10-19 10:29 | PD.CARD.PN ---
Subjective Subjective Remarks alert in nad Objective Medications Current Medications Medications (Trade) Dose Ordered Sig/Sofy Route Start Time Stop Time Status Last Admin (NS Flush) 2 ml UNSCH PRN IV FLUSH 10/18/17 01:45 (NS Flush) 2 ml BID IV FLUSH 10/18/17 09:00 10/19/17 09:43 (Zofran Inj) 4 mg Q6H PRN IVP 10/18/17 01:45 (Tylenol) 650 mg Q6H PRN PO 10/18/17 01:45 ([place] 5-325 Mg) 1 tab Q4H PRN PO 10/18/17 01:45 (Minoo-Colace) 1 tab BID PO 10/18/17 09:00 10/19/17 09:43 (Milk Of Magnesia Liq) 30 ml Q12H PRN PO 10/18/17 01:45 (Senokot) 17.2 mg Q12H PRN PO 10/18/17 01:45 (Dulcolax Supp) 10 mg DAILY PRN RECTAL 10/18/17 01:45 (Lactulose Liq) 30 ml DAILY PRN PO 10/18/17 01:45 (Morphine Inj) 2 mg Q3H PRN IV 10/18/17 02:15 (Lopressor) 12.5 mg Q12HR PO 10/18/17 12:00 10/19/17 09:42 (Lipitor) 40 mg HS PO 10/18/17 21:00 10/18/17 20:30 (Vasotec Inj) 1.25 mg Q6H PRN IV PUSH 10/18/17 16:00 Sodium Chloride 1,000 ml @ 75 mls/hr [id number] IV 10/18/17 16:04 10/19/17 05:24 (Eliquis) 5 mg BID PO 10/19/17 09:00 10/19/17 09:42 Vital Signs / I&O Vital Signs Date Time Temp Pulse Resp B/P (MAP) Pulse Ox O2 Delivery O2 Flow Rate FiO2 10/19/17 07:50 97.4 108 20 148/70 (96) 97 10/19/17 04:00 98.7 79 20 196/93 (127) 95 10/19/17 00:41 98.3 74 18 192/91 (124) 94 10/18/17 20:47 98.1 63 20 175/85 (115) 96 10/18/17 15:50 97.0 67 20 193/88 (123) 96 10/18/17 11:50 97.6 72 20 207/104 (138) 97 I/O 10/18/17 10/18/17 10/18/17 10/19/17 10/19/17 10/19/17 07:00 15:00 23:00 07:00 15:00 23:00 Intake Total 585 ml 515 ml 1220 ml 100 ml Balance 585 ml 515 ml 1220 ml 100 ml Intake Oral 240 ml IV Total 345 ml 515 ml 1220 ml 100 ml # Voids 3 6 # Bowel Movements 0 Physical Exam GENERAL: SKIN: Warm and dry. HEAD: Normocephalic. EYES: No scleral icterus. No injection or drainage. NECK: Supple, trachea midline. No JVD or lymphadenopathy. CARDIOVASCULAR: Regular rate and rhythm without murmurs, gallops, or rubs. RESPIRATORY: Breath sounds equal bilaterally. No accessory muscle use. GASTROINTESTINAL: Abdomen soft, non-tender, nondistended. MUSCULOSKELETAL: No cyanosis, or edema. BACK: Nontender without obvious deformity. No CVA tenderness. Laboratory Laboratory Tests Test 10/18/17 12:20 10/18/17 18:43 10/19/17 06:50 Troponin I LESS THAN 0.02 NG/ML Triglycerides Level 131 MG/DL Cholesterol Level 267 MG/DL LDL Cholesterol 181 MG/DL HDL Cholesterol 59.5 MG/DL Cholesterol/HDL Ratio 4.48 RATIO Erythrocyte Sedimentation Rate 3 mm/hr C-Reactive Protein LESS THAN 0.29 MG/DL Total Protein 7.2 GM/DL 6.9 GM/DL Free Thyroxine 1.30 NG/DL White Blood Count 7.0 TH/MM3 Red Blood Count 4.85 MIL/MM3 Hemoglobin 14.8 GM/DL Hematocrit 44.4 % Mean Corpuscular Volume 91.6 FL Mean Corpuscular Hemoglobin 30.6 PG Mean Corpuscular Hemoglobin Concent 33.4 % Red Cell Distribution Width 13.3 % Platelet Count 324 TH/MM3 Mean Platelet Volume 8.1 FL Neutrophils (%) (Auto) 67.8 % Lymphocytes (%) (Auto) 24.5 % Monocytes (%) (Auto) 5.7 % Eosinophils (%) (Auto) 0.9 % Basophils (%) (Auto) 1.1 % Neutrophils # (Auto) 4.7 TH/MM3 Lymphocytes # (Auto) 1.7 TH/MM3 Monocytes # (Auto) 0.4 TH/MM3 Eosinophils # (Auto) 0.1 TH/MM3 Basophils # (Auto) 0.1 TH/MM3 CBC Comment DIFF FINAL Differential Comment Blood Urea Nitrogen 13 MG/DL Creatinine 0.61 MG/DL Random Glucose 120 MG/DL Albumin 3.3 GM/DL Calcium Level 9.2 MG/DL Alkaline Phosphatase 74 U/L Aspartate Amino Transf (AST/SGOT) 11 U/L Alanine Aminotransferase (ALT/SGPT) 15 U/L Total Bilirubin 0.8 MG/DL Sodium Level 135 MEQ/L Potassium Level 4.0 MEQ/L Chloride Level 106 MEQ/L Carbon Dioxide Level 21.1 MEQ/L Anion Gap 8 MEQ/L Estimat Glomerular Filtration Rate 94 ML/MIN Imaging Last 24 hours Impressions Neck CTA [id number] Signed Impressions: Service Date/Time: Wednesday, October 18, 2017 18:03 - CONCLUSION: Mild atherosclerosis of both carotid bifurcations. No stenotic areas are demonstrated. Crow Palomino MD Head CTA [id number] Signed Impressions: Service Date/Time: Wednesday, October 18, 2017 18:03 - CONCLUSION: No significant narrowing by CT. Crow Palomino MD Assessment and Plan Problem List: (1) Atrial fibrillation ICD Codes: I48.91 - Unspecified atrial fibrillation Status: Acute (2) HTN (hypertension) ICD Codes: I10 - Essential (primary) hypertension Status: Acute (3) CVA (cerebral vascular accident) ICD Codes: I63.9 - Cerebral infarction, unspecified Status: Acute Assessment and Plan 1.) New onset afib - assymptomatic, rate control, ac and bp parameters per neurology in setting of acute cva, on eliquis, lopressor and lipitor, she had appointment with Dr Gates as outpatient, i d/w Dr Gates and patient and advised patient to f/u with Dr Gates as outpatient Hadley Zayas MD Oct 19, 2017 10:29
--- NOTE | 2017-10-19 13:07 | HHI.PR ---
Subjective Remarks Patient's at bedside, gives additional information that she was started on Eliquis at her PCPs office last however only took several of them. Patient's thought it was a medication for her bladder. Patient also has history of mitral valve prolapse. I discussed with the patient's PCP Dr. Galeana and he states that the atrial fibrillation is new onset. When she was seen in the office on she had no neurologic deficits and it was thought that she had vertigo at the time. also feels that she has been somewhat confused in the hospital. Patient currently denies confusion. Objective Vitals Vital Signs Date Time Temp Pulse Resp B/P (MAP) Pulse Ox O2 Delivery O2 Flow Rate FiO2 10/19/17 09:45 109 10/19/17 07:50 97.4 108 20 148/70 (96) 97 10/19/17 04:00 98.7 79 20 196/93 (127) 95 10/19/17 00:41 98.3 74 18 192/91 (124) 94 10/18/17 20:47 98.1 63 20 175/85 (115) 96 10/18/17 15:50 97.0 67 20 193/88 (123) 96 I/O 10/18/17 10/18/17 10/18/17 10/19/17 10/19/17 10/19/17 07:00 15:00 23:00 07:00 15:00 23:00 Intake Total 585 ml 515 ml 1220 ml 100 ml Balance 585 ml 515 ml 1220 ml 100 ml Intake Oral 240 ml IV Total 345 ml 515 ml 1220 ml 100 ml # Voids 3 6 # Bowel Movements 0 Result Diagram: 10/19/17 0650 10/19/17 0650 Objective Remarks GENERAL: Well-nourished, well-developed patient. SKIN: Warm and dry. HEAD: Normocephalic. EYES: No scleral icterus. No injection or drainage. NECK: Supple, trachea midline. No JVD or lymphadenopathy. CARDIOVASCULAR: Regular rate and rhythm without murmurs, gallops, or rubs. RESPIRATORY: Breath sounds equal bilaterally. No accessory muscle use. GASTROINTESTINAL: Abdomen soft, non-tender, nondistended. EXTREMITIES: No cyanosis, or edema. NEUROLOGICAL: Awake, alert, and oriented x 3. 4-5 strength in left upper and left lower extremity. Face symmetric. Speech normal. A/P Problem List: (1) CVA (cerebral vascular accident) ICD Code: I63.9 - Cerebral infarction, unspecified Status: Acute (2) HTN (hypertension) ICD Code: I10 - Essential (primary) hypertension Status: Chronic (3) Atrial fibrillation ICD Code: I48.91 - Unspecified atrial fibrillation Status: Acute Assessment and Plan Mrs. Green is an 82-year-old female patient with a known medical history of HTN and hyperlipidemia who presented to the ED with left sided weakness and falls x 3. -Acute periventricular multiple small infarcts/CVA - more on the right side. Patient with atrial fibrillation controlled rate which is a new onset discovered in PCPs office on . Patient was prescribed Eliquis but took only several pills. Neck CTA-negative. Head MRA shows multifocal stenosis at the origin of bilateral middle cerebral arteries and multifocal narrowing of the bilateral posterior cerebral and distal right MCA branches. LDL 181, patient started on Lipitor. Echocardiogram shows preserved left ventricular ejection fraction, mild to moderate aortic valve regurgitation, mild-to- moderate mitral valve regurgitation and trace tricuspid valve regurgitation. Patient tolerating regular diet. Patient has been seen by neurology and cardiology. -Continue Eliquis and Lipitor. Discussed with Dr. Herrera today. -Continue physical therapy and occupational therapy -Hypertension. Uncontrolled. Continue metoprolol 12.5 mg twice a day. We'll start lisinopril 20 mg daily. -Prediabetes. Hemoglobin A1c 6.2. Place on ADA diet. -DVT prophylaxis with SCDs and Eliquis. Discharge Planning She will likely require intermediate facility. Problem Qualifiers (1) CVA (cerebral vascular accident): (2) HTN (hypertension): Qualified Codes: I10 - Essential (primary) hypertension Tamiko Holguin MD Oct 19, 2017 13:07
--- NOTE | 2017-10-19 15:55 | HHI.PR ---
Objective Vital Signs Date Time Temp Pulse Resp B/P (MAP) Pulse Ox O2 Delivery O2 Flow Rate FiO2 10/19/17 11:50 97.3 75 20 171/89 (116) 94 10/19/17 09:45 109 10/19/17 07:50 97.4 108 20 148/70 (96) 97 10/19/17 04:00 98.7 79 20 196/93 (127) 95 10/19/17 00:41 98.3 74 18 192/91 (124) 94 10/18/17 20:47 98.1 63 20 175/85 (115) 96 I/O 10/18/17 10/18/17 10/18/17 10/19/17 10/19/17 10/19/17 07:00 15:00 23:00 07:00 15:00 23:00 Intake Total 585 ml 515 ml 1220 ml 100 ml Balance 585 ml 515 ml 1220 ml 100 ml Intake Oral 240 ml IV Total 345 ml 515 ml 1220 ml 100 ml # Voids 3 6 # Bowel Movements 0 Result Diagram: 10/19/17 0650 10/19/17 0650 Objective Remarks 4+/5 lle face sym left arm ok Assessment and Plan Assessment and Plan imp she was just found to have afib the other day and eliquis had been on for three doses plan is 5 bid eliquis tsh echo b12 esr crp nl cta x2 neg mca nl Eugenio Granado MD Oct 19, 2017 15:55
[2017-10-19] MEDS: ATORVASTATIN 40 MG TAB PO SCH (20:59)
[2017-10-20] VITALS: BP 182/94; PULSE 92; RESP 18; TEMP 98.1; O2SAT 94
[2017-10-20 04:00] VITALS: BP 200/97; PULSE 104; RESP 18; TEMP 96.9; O2SAT 94
[2017-10-20 08:00] VITALS: BP 170/67; PULSE 96; RESP 18; TEMP 97.9; O2SAT 95
[2017-10-20] MEDS: SODIUM CHLOR 0.9% 1000 ML INJ 1,000 ML IV SCH (08:04)
[2017-10-20] MEDS: DOCUSATE SODIUM 50 MG/SENNA 8.6 MG TAB PO SCH (09:00)
[2017-10-20] MEDS: METOPROLOL TARTRATE 25 MG TAB PO SCH (09:07)
[2017-10-20] MEDS: APIXABAN 5 MG TABLET PO SCH (09:07)
[2017-10-20] MEDS: SODIUM CHLORIDE 0.9% FLUSH 10 ML FLUSH IV FLUSH SCH (09:08)
[2017-10-20 12:00] VITALS: BP 160/73; PULSE 87; RESP 18; TEMP 97.2; O2SAT 96
[2017-10-20] MEDS ORDERED: METOPROLOL TARTRATE 25 MG TAB PO ONE (13:00)
--- NOTE | 2017-10-20 13:00 | HHI.PR ---
Subjective Remarks Follow-up acute CVA/new onsets A. fib 10/20/17-patient seen and examined, denies any acute event overnight. Still complains of left lower extremity weakness otherwise stable this morning Objective Vitals Vital Signs Date Time Temp Pulse Resp B/P (MAP) Pulse Ox O2 Delivery O2 Flow Rate FiO2 10/20/17 12:00 97.2 87 18 160/73 (102) 96 10/20/17 08:00 97.9 96 18 170/67 (101) 95 10/20/17 04:00 96.9 104 18 200/97 (131) 94 10/20/17 00:00 98.1 92 18 182/94 (123) 94 10/19/17 23:00 90 10/19/17 20:00 85 10/19/17 20:00 97.5 87 20 210/92 (131) 96 10/19/17 15:50 97.8 79 20 197/90 (125) 95 10/19/17 15:00 82 I/O 10/19/17 10/19/17 10/19/17 10/20/17 10/20/17 10/20/17 07:00 15:00 23:00 07:00 15:00 23:00 Intake Total 100 ml 1500 ml 975 ml Balance 100 ml 1500 ml 975 ml Intake Oral 600 ml IV Total 100 ml 900 ml 975 ml # Voids 6 12 # Bowel Movements 0 0 Result Diagram: 10/19/17 0650 10/19/17 0650 Imaging Last Impressions Neck CTA [id number]/18/[id number] Signed Impressions: Service Date/Time: Wednesday, October 18, 2017 18:03 - CONCLUSION: Mild atherosclerosis of both carotid bifurcations. No stenotic areas are demonstrated. Crow Palomino MD Head CTA [id number] Signed Impressions: Service Date/Time: Wednesday, October 18, 2017 18:03 - CONCLUSION: No significant narrowing by CT. Crow Palomino MD Head CT 10/18/1713 Signed Impressions: Service Date/Time: Wednesday, October 18, 2017 00:30 - CONCLUSION: 1. No acute findings in the brain. 2. 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 3. Bilateral maxillary and ethmoid sinus disease. Jamil Fleming MD Chest X-Ray 10/18/1713 Signed Impressions: Service Date/Time: Wednesday, October 18, 2017 00:28 - CONCLUSION: Cardiomegaly. No focal infiltrates seen. Jamil Fleming MD Head Magnetic Resonance Angiography 10/18/17 0000 Signed Impressions: Service Date/Time: Wednesday, October 18, 2017 15:40 - CONCLUSION: No evidence for intracranial aneurysm or occlusion. Multifocal stenoses are identified most pronounced at the origin of the bilateral middle cerebral arteries. Inderjit Newman MD Carotid Artery Ultrasound 10/18/17 0000 Signed Impressions: Service Date/Time: Wednesday, October 18, 2017 12:11 - CONCLUSION: No evidence of hemodynamically significant carotid stenosis. Sarabjit Damico MD Brain MRI 10/18/17 0000 Signed Impressions: Service Date/Time: Wednesday, October 18, 2017 15:40 - CONCLUSION: 1. Small acute periventricular white matter infarcts as above, right worse on left. 2. Chronic periventricular white matter changes. 3. Acute on chronic appearing paranasal sinusitis. Crow Palomino MD Objective Remarks GENERAL: NAD SKIN: Warm and dry. HEAD: Normocephalic. EYES: No scleral icterus. No injection or drainage. NECK: Supple, trachea midline. No JVD or lymphadenopathy. CARDIOVASCULAR: Irregular Regular rate and rhythm without murmurs, gallops, or rubs. RESPIRATORY: Breath sounds equal bilaterally. No accessory muscle use. GASTROINTESTINAL: Abdomen soft, non-tender, nondistended. MUSCULOSKELETAL: No cyanosis, or edema. 4/5 LLE BACK: Nontender without obvious deformity. No CVA tenderness. Procedures none A/P Problem List: (1) CVA (cerebral vascular accident) ICD Code: I63.9 - Cerebral infarction, unspecified Status: Acute (2) HTN (hypertension) ICD Code: I10 - Essential (primary) hypertension Status: Chronic (3) Atrial fibrillation ICD Code: I48.91 - Unspecified atrial fibrillation Status: Acute Assessment and Plan 82-year-old female with Acute periventricular multiple small infarcts /CVA Appreciate input from neurology Currently on aspirin, Lipitor, Eliquis Continue with PT/OT Discharge rehabilitation next 24 hours New onset atrial fibrillation 2-D echo with preserved left ventricular ejection fraction Currently rate controlled on Eliquis, Lopressor Labile benign hypertension Increase Lopressor to 50 mg twice a day Give extra 25 mg by mouth Lopressor 1 now Prediabetes. Hemoglobin A1c 6.2. DVT prophylaxis with SCDs and Eliquis. Problem Qualifiers (1) CVA (cerebral vascular accident): (2) HTN (hypertension): Qualified Codes: I10 - Essential (primary) hypertension Deepak Quiñones MD Oct 20, 2017 13:00
[2017-10-20] MEDS ORDERED: ATOR40TA16 PO (13:19)
[2017-10-20] MEDS ORDERED: HYDR-3516 PO (13:19)
[2017-10-20] MEDS ORDERED: METO25TA3 PO (13:19)
[2017-10-20] MEDS ORDERED: ASPI81TA23 PO (13:19)
[2017-10-20] MEDS ORDERED: APIX5TAB PO (13:19)
--- NOTE | 2017-10-20 13:24 | HHI.DS ---
Discharge Summary Admission Date Oct 18, 2017 at 12:54 Discharge Date: Oct 20, 2017 Admitting Diagnosis CVA, afib-new onset, htn (1) CVA (cerebral vascular accident) ICD Code: I63.9 - Cerebral infarction, unspecified Status: Acute (2) HTN (hypertension) ICD Code: I10 - Essential (primary) hypertension Status: Chronic (3) Atrial fibrillation ICD Code: I48.91 - Unspecified atrial fibrillation Status: Acute Procedures none Brief History - From Admission Written by Merly Holcomb, acting as scribe for Dr. Holguin on 10/18/17 at 11: 29. Mrs. Green is an 82-year-old female patient with a known medical history of HTN and hyperlipidemia who presented to the ED with left sided weakness and falls x 3. Patient states that around at 1400 she developed left lower extremity weakness and dizziness at work. She states she lost her balance and caught herself, did not hit her head or loose consciousness. Patient states she was taken home and rest overnight. On Friday she rested all day at home with continued left sided weakness. On Friday around dinner time she fell again in the kitchen, did not hit her head and no LOC at that time. Once again as patient was using the restroom later Friday night she fell again and at that time also had some memory problems which prompted her presentation to the ED. Patient denies any recent illness including any fever, chills, headache, vision changes, diplopia, loss of consciousness, sore throat, shortness of breath, ab pain, n/v/d or dysuria. CBC/BMP: 10/19/17 0650 10/19/17 0650 Significant Findings Laboratory Tests Test 10/18/17 00:45 10/18/17 06:50 10/18/17 12:20 10/18/17 18:43 Monocytes (%) (Auto) 9.3 % (0.0-8.0) Urine Occult Blood TRACE (NEG) Blood Urea Nitrogen 21 MG/DL (7-18) Random Glucose 113 MG/DL (74-106) Calcium Level 10.2 MG/DL (8.5-10.1) Aspartate Amino Transf (AST/SGOT) 10 U/L (15-37) Estimat Glomerular Filtration Rate 58 ML/MIN (>89) Troponin I LESS THAN 0.02 NG/ML LESS THAN 0.02 NG/ML LESS THAN 0.02 NG/ML Hemoglobin A1c 6.1 % (4.3-6.0) Cholesterol Level 267 MG/DL (120-200) LDL Cholesterol 181 MG/DL (0-99) Test 10/19/17 06:50 Random Glucose 120 MG/DL (74-106) Albumin 3.3 GM/DL (3.4-5.0) Aspartate Amino Transf (AST/SGOT) 11 U/L (15-37) Sodium Level 135 MEQ/L (136-145) Imaging Last Impressions Neck CTA [id number]/18/171646 Signed Impressions: Service Date/Time: Wednesday, October 18, 2017 18:03 - CONCLUSION: Mild atherosclerosis of both carotid bifurcations. No stenotic areas are demonstrated. Crow Palomino MD Head CTA [id number]/[id number] Signed Impressions: Service Date/Time: Wednesday, October 18, 2017 18:03 - CONCLUSION: No significant narrowing by CT. Crow Palomino MD Head CT 10/18/1713 Signed Impressions: Service Date/Time: Wednesday, October 18, 2017 00:30 - CONCLUSION: 1. No acute findings in the brain. 2. 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 3. Bilateral maxillary and ethmoid sinus disease. Jamil Fleming MD Chest X-Ray 10/18/17 0014 Signed Impressions: Service Date/Time: Wednesday, October 18, 2017 00:28 - CONCLUSION: Cardiomegaly. No focal infiltrates seen. Jamil Flemign MD Head Magnetic Resonance Angiography 10/18/17 0000 Signed Impressions: Service Date/Time: Wednesday, October 18, 2017 15:40 - CONCLUSION: No evidence for intracranial aneurysm or occlusion. Multifocal stenoses are identified most pronounced at the origin of the bilateral middle cerebral arteries. Inderjit Newman MD Carotid Artery Ultrasound 10/18/17 0000 Signed Impressions: Service Date/Time: Wednesday, October 18, 2017 12:11 - CONCLUSION: No evidence of hemodynamically significant carotid stenosis. Sarabjit Damico MD Brain MRI 10/18/17 0000 Signed Impressions: Service Date/Time: Wednesday, October 18, 2017 15:40 - CONCLUSION: 1. Small acute periventricular white matter infarcts as above, right worse on left. 2. Chronic periventricular white matter changes. 3. Acute on chronic appearing paranasal sinusitis. Crow Palomino MD PE at Discharge GENERAL: NAD SKIN: Warm and dry. HEAD: Normocephalic. EYES: No scleral icterus. No injection or drainage. NECK: Supple, trachea midline. No JVD or lymphadenopathy. CARDIOVASCULAR: Irregular Regular rate and rhythm without murmurs, gallops, or rubs. RESPIRATORY: Breath sounds equal bilaterally. No accessory muscle use. GASTROINTESTINAL: Abdomen soft, non-tender, nondistended. MUSCULOSKELETAL: No cyanosis, or edema. 4/5 LLE BACK: Nontender without obvious deformity. No CVA tenderness. Hospital Course Patient admitted secondary to acute CVA for which neurology was consulted and patient was treated per stroke protocol. She was started on by mouth antihypertensive medication after permissive hypertension was discontinued. Physical therapy, OT were all consulted. Statin therapy was initiated. Patient was also found to have new onset atrial fibrillation for which cardiology was consulted and she was continued on oral anticoagulation. Patient 's condition improved prior to discharge and vital remained stable. She will need repeat A1c in 3 months Pt Condition on Discharge: Stable Discharge Disposition: Rehab Inpatient Discharge Time: > 30 minutes Discharge Instructions DIET: Follow Instructions for: Heart Healthy Diet Activities you can perform: Regular-No Restrictions Follow up Referrals: Cardiology Neurology PCP Follow-up - 2-3 Days New Medications: Aspirin DR (Aspirin EC) 81 Mg Tabdr 81 MG PO DAILY for Prevent Blood Clot, #30 TAB 0 Refills Apixaban (Eliquis) 5 Mg Tab 5 MG PO BID for Regulate Heart Beat, #60 TAB 11 Refills Atorvastatin (Atorvastatin) 40 Mg Tab 40 MG PO HS for Cholesterol Management, #30 TAB 11 Refills Hydrocodone/Acetaminophen (Hydrocodone-Acetamin 5-325 mg) 5 Mg-325 Mg Tablet 1 TAB PO Q4H PRN for PAIN SCALE 3 TO 5, #10 TAB Metoprolol Tartrate (Metoprolol Tartrate) 25 Mg Tab 50 MG PO Q12HR for Blood Pressure Management, #60 TAB 11 Refills Deepak Quiñones MD Oct 20, 2017 13:24
[2017-10-20 13:26] LABS: ANA SCREEN POS (NEG)
[2017-10-20 14:21] VITALS: PULSE 73
--- NOTE | 2017-10-20 17:21 | HM ---
Date Performed: 10/18/2017 Time Performed: 20:23:00 HOOKUP DATE: 10/18/17 08:23:00 PM Sat ANALYSIS START TIME: 10/18/2017 8:28:00 PM ANALYSIS END TIME: 10/19/2017 8:32:00 PM PATIENT AGE: 82 PATIENT HEIGHT PATIENT WEIGHT: 137 DRUG LIST PATIENT DIAGNOSIS: CVA A-FIB TEST NARRATIVE: The patient's average heart rate was 84 BPM. Heart rates greater than 120 B PM were noted 1% of the time. No episodes of bradycardia were noted. One pause of 2.4 seconds oc curred at 08:29 PM. 1105 ventricular ectopics, which represented 1% of the total beat count, were noted. The highest ventricular ectopic frequency occurred from 07:00 PM to 08:00 PM Sun. During th is time 169 VE(s) occurred. Ventricular ectopics were observed as 1082 isolated beat(s), as 10 coupl et(s) and as 1 run(s). Some of the ventricular beats occurred in bigeminal cycles. No supraventr icular ectopics were noted. No episodes of ST depression (defined as -1.0 mm or more) were noted in channel 1. No episodes of ST depression (defined as -1.0 mm or more) were noted in channel 2. No episodes of ST depression (defined as -1.0 mm or more) were noted in channel 3. no diary maintained TEST INTERPRETATION: Patient was monitored 24 hours and 4 minutes. Patient's in a fib, average H R of 84 bpm, minumum HR of 52, maxiumum HR of 138 bpm. 1082 wide complex PVCs. 3 cycles of bigeminy. 10 wide complex couplets and 1 3-beat run of wide complex tachycardia at 1005, which is probably morp hic and it is indeterminate whether this is PACs with abbearancy versus ventricular tachycardia. At 2 049, there is a 2.4 second pause. Signed by : Hadley Zayas
[2017-10-20] MEDS ORDERED: METOPROLOL TARTRATE 25 MG TAB PO SCH (21:00)
[2017-10-21] MEDS ORDERED: FAMO20TA2 PO (14:12)
[2017-10-21 17:04] LABS: ALBUMIN SPE 4.24 GM/DL (3.50-5.00); ALPHA 1 GLOBULIN 0.21 GM/DL (0.11-0.29); BETA GLOBULINS (SPE) 1.04 GM/DL (0.53-1.03)
== END 2017-10-20 17:26 | DRG 66 ==
LOC: PHED 23:53 → PHEDA 10-18 01:57 → PH3A 10-18 02:22 → OBSVTOIN 10-18 12:54
PROVIDERS: ADMIT Hospitalist; ATTEND Hospitalist
DX: I63.9 Cerebral infarction, unspecified (principal); I48.91 Unspecified atrial fibrillation; I34.1 Nonrheumatic mitral (valve) prolapse; R53.1 Weakness; I10 Essential (primary) hypertension; E78.5 Hyperlipidemia, unspecified; Z91.81 History of falling; R73.03 Prediabetes
CPT/HCPCS: 70450; 70496; 70498; 70544; 70551; 71010; 80053; 80061; 81001; 82550; 82607; 83036; 83921; 84165; 84425; 84439; 84443; 84484; 85025; 85610; 85652; 85730; 86038; 86039; 86140; 86592; 90471; 90686; 90732; 93005; 93225; 93226; 93306; 93880; G0008; G0009; G8987-GO; G8987-GP; G8988-GO; G8988-GP; J1644; J7030; Q2038; Q9967

== ENCOUNTER 2017-10-21 14:40 | Inpatient (IN) | payer MEDICARE, OTHER ==
[2017-10-21] VITALS (8 sets, daily range): BP systolic 200–219; BP diastolic 86–98; PULSE 84–99; RESP 14–18; TEMP 97.6–98.2; O2SAT 95–98
[~2017-10-21 14:40] MED LIST: APIX5TAB PO; ASPI81TA23 PO; ATOR40TA16 PO; FAMO20TA2 PO; HYDR-3516 PO; METO25TA3 PO
--- NOTE | 2017-10-21 16:22 | MB ---
cc: EFRA EARL MD DATE OF CONSULTATION: 10/21/2017 REASON FOR CONSULTATION: Stroke alert. HISTORY OF PRESENT ILLNESS: Miss Ferguson is a an 82-year-old female with past medical history of hypertension, hyperlipidemia, recent diagnosis of atrial fibrillation, currently on Eliquis 5 mg twice daily and recent acute ischemic stroke with residual left-sided weakness 3 days ago. Currently being [facility] and was noted to have a weakening left upper extremity weakness and unable to lift her arm noted by the physician , Dr. Sy and her hematology supervisor at the bedside and thus the stroke alert was called. Stat head CT scan without contrast revealed right lacunar infarct the extensive workup done previously, recently revealed a brain MRI on 10/18/2017 that showed small acute periventricular white matter infarcts sub centri-metric foci at the right frontal and parietal lobes and a single 4-mm focus in the left parietal lobe as well. A head MRA without contrast on 10/18/2017 revealed focal moderate stenoses at the origin of the left and right middle cerebral arteries as well as multifocal narrowing of the bilateral metrology specialist and distal right MCA. Carotid ultrasound, neck CTA and head CTA were unremarkable. Labs were unremarkable as well. Of note as per the nurse the blood pressure was elevated to hold greater than 200s systolic and 100 diastolic and the patient is in atrial fibrillation. REVIEW OF SYSTEMS A 12-point review of systems is negative except for what is stated in the history of present illness. SOCIAL HISTORY: Does not smoke, occasionally drinks alcohol. No illicit drug abuse. FAMILY HISTORY Noncontributory MEDICATIONS Aspirin 81 mg daily, for the last 3 days she has started on Eliquis 5 mg twice daily. ALLERGIES NO KNOWN DRUG ALLERGIES. PHYSICAL EXAMINATION IN GENERAL: Awake, alert, oriented not in acute distress, well-groomed HEAD, EYES, EARS, NOSE, AND THROAT: Intubated and hearing intact vision. NECK: Supple. No carotid bruit. RESPIRATORY: Clear to auscultation. No wheezes. CARDIOVASCULAR SYSTEM: Regular rate and rhythm. ABDOMEN: Soft. No organomegaly. EXTREMITIES: Unable to move the entire weakness of the left upper and lower extremity. No swelling. No edema. No clubbing. NEUROLOGIC: Awake, alert, oriented time, person and place. Mild dysarthria. No diplopia mild left facial weakness. ? right ptosis, No nystagmus. Right upper intact facial sensation, right upper and lower extremity five 5/5 throughout, left lower extremity grade 0/5 throughout, left upper extremity grade 3/5, shoulder abduction, grade 2, elbow extension grade 3, wrist extension. There is sensory extinction in upper and lower extremities with diminished sensation in the left upper extremity unable to perform finger-to- nose and [id number] on the left side. Intact [id number] to the right side. LABORATORY DATA Next WBC 6.3, hemoglobin 15, platelet 302, sodium 131, potassium 4.9, glucose 136, BUN 13, creatinine 0.71, calcium 9.7. Diagnostic imaging: -Head CT brain without contrast is stable with no evidence of an acute intracranial abnormality EXAMINATION Chronic lacunar infarction on the right, mild diffuse atrophy. DIAGNOSTIC IMPRESSION 1. History of recent acute right hemispheric ischemic stroke with worsening left upper extremity. 2. Recrudescence of her recent stroke symptoms. 3. Acute ischemic stroke 4. Hypertensive urgency. PLAN 1. Neuro checks q. one hourly 2. Transfer from the rehab center to an intensive care unit for close monitoring. 3. Neuro checks q. one hourly. 4. Telemonitoring 5. Aspirin 81mg 5. Continue Eliquis 5 mg twice daily. 6. Allow permissive hypertension and treat for blood pressure greater than 220/ 110. 7. Deep venous thrombosis prophylaxis. 8. MRI brain without contrast. 9. Fall precautions. 10.GI prophylaxis. Thank you for the opportunity to participate in the care of your patient. MD JOSE Rahman/alycia /2:24 PM /4:07 PM LIS
[2017-10-21] MEDS ORDERED: POTASSIUM CHLOR 20 MEQ PREMIX 100 ML IV PRN ×2 (18:15)
[2017-10-21] MEDS ORDERED: RESP: ALBUTEROL 2.5 MG/IPRATROPIUM 0.5 MG NEB (PRN) INH (18:15)
[2017-10-21] MEDS ORDERED: CHLORHEXIDINE GLUCONATE 2 % 1 PACK (2 CLOTHS) TOP PRN (18:15)
[2017-10-21] MEDS ORDERED: POTASSIUM PHOSPHATE MONOBASIC 500 MG TAB PO/TUBE PRN (18:15)
[2017-10-21] MEDS ORDERED: POTASSIUM CHLOR 40 MEQ PREMIX 100 ML IV PRN ×2 (18:15)
[2017-10-21] MEDS ORDERED: ACETAMINOPHEN/HYDROcodone 325 MG/5 MG TAB PO PRN (18:15)
[2017-10-21] MEDS ORDERED: SENNOSIDES 8.6 MG TAB PO PRN (18:15)
[2017-10-21] MEDS ORDERED: ONDANSETRON HCL 4 MG/2 ML VIAL IV PUSH PRN (18:15)
[2017-10-21] MEDS ORDERED: MAGNESIUM HYDROXIDE SUSP 30 ML CUP PO PRN (18:15)
[2017-10-21] MEDS ORDERED: MAGNESIUM OXIDE 400 MG TAB PO PRN (18:15)
[2017-10-21] MEDS ORDERED: MISCELLANEOUS NURSING INFORMATION XX SCH (18:15)
[2017-10-21] MEDS ORDERED: DEXTROSE 50% IN WATER 50 ML VIAL(D50) IV PUSH PRN (18:15)
[2017-10-21] MEDS ORDERED: POTASSIUM PHOSPHATE INJ 30 MMOL in SODIUM CHLOR 0.9% 250 ML INJ 250 ML IV PRN (18:15)
[2017-10-21] MEDS ORDERED: MAGNESIUM SULFATE INJ 4 GM in SODIUM CHLORIDE 0.9% INJ 92 ML IV PRN (18:15)
[2017-10-21] MEDS ORDERED: SODIUM PHOSPHATE INJ 30 MMOL in SODIUM CHLOR 0.9% 250 ML INJ 240 ML IV PRN (18:15)
[2017-10-21] MEDS ORDERED: BISACODYL 10 MG SUPP RECTAL PRN (18:15)
[2017-10-21] MEDS ORDERED: MAGNESIUM SULFATE INJ 2 GM in SODIUM CHLORIDE 0.9% INJ 96 ML IV PRN (18:15)
[2017-10-21] MEDS ORDERED: POTASSIUM PHOSPHATE MONOBASIC 500 MG TAB PO PRN (18:15)
[2017-10-21] MEDS ORDERED: LACTULOSE SYRUP 20 GM/30 ML CUP PO PRN (18:15)
--- NOTE | 2017-10-21 18:31 | HHI.HP ---
HPI Service Critical Care Medicine Primary Care Physician Unknown Admission Diagnosis Diagnosis: Chief Complaint: left-sided weakness Travel History International Travel<30 Days: No Contact w/Intl Traveler <30 Da: No Traveled to Known Affected Are: No History of Present Illness 82yF recently admitted this week for new right MCA CVA with left-sided weakness , stable, sent to rehab. today in rehab was weaker on the left and unable to use left hand/leg. stroke alert called. deficits worse. taken to MRI: progression of infarct, no new infarct noted. severe hypertension with sbp 200s. emergent transfer to ICU. on my eval, patient denies additional complaints other than left-sided weakness. ROS negative. CCM consulted to evaluate and manage possible new stroke. full work-up already done last week. Review of Systems ROS Limitations: Clinical Condition Constitutional: DENIES: Fatigue, Fever, Chills Respiratory: DENIES: Cough, Sputum production, Shortness of breath Cardiovascular: DENIES: Chest pain, Syncope, Dyspnea on Exertion, Lower Extremity Edema Gastrointestinal: DENIES: Abdominal pain, Constipation, Diarrhea, Nausea, Vomiting Neurologic: COMPLAINS OF: Localized weakness, DENIES: Abnormal gait, Headache Past Family Social History Allergies: Coded Allergies: No Known Allergies (Verified Allergy, Unknown, 10/18/17) Past Medical History Hypertension Hyperlipidemia acute right MCA CVA 3 days ago Past Surgical History Hysterectomy Reported Medications Famotidine 20 Mg Tab 20 Mg PO BID Aspirin EC (Aspirin) 81 Mg Tabdr 81 Mg PO DAILY Hydrocodone-Acetamin 5-325 mg (Hydrocodone/Acetaminophen) 5 Mg-325 Mg Tablet 1 Tab PO Q4H PRN Metoprolol Tartrate 25 Mg Tab 50 Mg PO Q12HR Atorvastatin (Atorvastatin Calcium) 40 Mg Tab 40 Mg PO HS Eliquis (Apixaban) 5 Mg Tab 5 Mg PO BID Active Ordered Medications See MAR Family History Maternal medical history significant for cardiovascular disease. Social History Denies any current tobacco use. Admits to social drinking. Denies any illicit drug use. Physical Exam Vital Signs Vital Signs Date Time Temp Pulse Resp B/P (MAP) Pulse Ox O2 Delivery O2 Flow Rate FiO2 10/21/17 16:32 98 Nasal Cannula 2.00 10/21/17 16:00 97.9 84 18 200/86 (124) 98 Physical Exam gen: elderly female, lying in bed heent: perrl. mmm. slight left facial droop noted. neck:no jvd. trachea midline. chest: unlabored. nc o2. equal chest rise. cv: hypertensive sbp 218 on my eval. afib/flutter on my eval. HR 90s-100s. abd: soft, nondistended, nontender. no guarding. extr: distal pulses 2+. no edema. neuro: RASS 0. DAVEY: RUE 5/5 RLE 5/5 LUE 4/5 LLE 3/5 speech intact. sensation grossly intact CN 2-12 grossly intact with exception of slight facial droop. Laboratory Laboratory Tests Test 10/21/17 18:00 Imaging MRI: progression/evolution of infarct previously seen, no new areas of diffusion restriction. Caprini VTE Risk Assessment Caprini VTE Risk Assessment: Mod/High Risk (score >= 2) Caprini Risk Assessment Model Point Value = 1 Point Value = 2 Point Value = 3 Point Value = 5 Age 41-60 Minor surgery BMI > 25 kg/m2 Swollen legs Varicose veins or History of unexplained or recurrent spontaneous Oral contraceptives or hormone replacement Sepsis (< 1 month) Serious lung disease, including pneumonia (< 1 month) Abnormal pulmonary function Acute myocardial infarction Congestive heart failure (< 1 month) History of inflammatory bowel disease Medical patient at bed rest Age 61-74 Arthroscopic surgery Major open surgery (> 45 min) Laparoscopic surgery (> 45 min) Malignancy Confined to bed (> 72 hours) Immobilizing plaster cast Central venous access Age >= 75 History of VTE Family history of VTE Factor V Leiden Prothrombin [id number] Lupus anticoagulant Anticardiolipin antibodies Elevated serum homocysteine Heparin-induced thrombocytopenia Other congenital or acquired thrombophilia Stroke (< 1 month) Elective arthroplasty Hip, pelvis, or leg fracture Acute spinal cord injury (< 1 month) Prophylaxis Regimen Total Risk Factor Score Risk Level Prophylaxis Regimen 0-1 Low Early ambulation 2 Moderate Order ONE of the following: *Sequential Compression Device (SCD) *Heparin 5000 units SQ BID 3-4 Higher Order ONE of the following medications: *Heparin 5000 units SQ TID *Enoxaparin/Lovenox 40 mg SQ daily (WT < 150 kg, CrCl > 30 mL/min) *Enoxaparin/Lovenox 30 mg SQ daily (WT < 150 kg, CrCl > 10-29 mL/min) *Enoxaparin/Lovenox 30 mg SQ BID (WT < 150 kg, CrCl > 30 mL/min) AND/OR *Sequential Compression Device (SCD) 5 or more Highest Order ONE of the following medications: *Heparin 5000 units SQ TID (Preferred with Epidurals) *Enoxaparin/Lovenox 40 mg SQ daily (WT < 150 kg, CrCl > 30 mL/min) *Enoxaparin/Lovenox 30 mg SQ daily (WT < 150 kg, CrCl > 10-29 mL/min) *Enoxaparin/Lovenox 30 mg SQ BID (WT < 150 kg, CrCl > 30 mL/min) AND *Sequential Compression Device (SCD) Assessment and Plan Assessment and Plan Assessment: 82yF with atrial fib/flutter and recent admission for CVA presents with new and worsening weakness concerning for new CVA vs. progression of recent CVA. Has been completely evaluated this week already. Admit to ICU. permissive hypertension. keep on ASA, stain, oral anticoagulant. appreciate neuro recs. frequent neuro checks. bedside swallow. Acute CVA - nursing bedside swallow and advance diet permissive hypertension, goal sbp 160 - 220 hold antihypertensives frequent neuro checks neurology consult Hypertension - goal sbp 160 - 220 - prn hydralazine for > 220 hold home metoprolol Atrial fibrillation - currently rate controlled. - continue oral anticoagulant PT consult SCDs/oral anticoagulant pepcid Remain in ICU. Aj Rivera MD Oct 21, 2017 18:31
[2017-10-21] MEDS: INSULIN NovoLIN REGULAR SUPPLEMENTAL SCALE SQ SCH (20:50)
[2017-10-21] MEDS: ATORVASTATIN 40 MG TAB PO SCH (20:56)
[2017-10-21] MEDS: DOCUSATE SODIUM 50 MG/SENNA 8.6 MG TAB PO SCH (20:56)
[2017-10-21] MEDS: FAMOTIDINE 20 MG TAB PO SCH (20:56)
[2017-10-21] MEDS: SODIUM CHLOR 0.9% 1000 ML INJ 1,000 ML IV SCH (20:59)
[2017-10-21] MEDS: APIXABAN 5 MG TABLET PO SCH (21:13)
[2017-10-22] VITALS (16 sets, daily range): BP systolic 182–228; BP diastolic 89–108; PULSE 93–119; RESP 15–17; TEMP 97.5–98.6; O2SAT 93–98
[2017-10-22] MEDS: INSULIN NovoLIN REGULAR SUPPLEMENTAL SCALE SQ SCH ×5 (02:39→21:00)
[2017-10-22] MEDS: CHLORHEXIDINE GLUCONATE 2 % 1 PACK (2 CLOTHS) TOP SCH (03:28)
[2017-10-22] MEDS: SODIUM CHLOR 0.9% 1000 ML INJ 1,000 ML IV SCH ×2 (04:44→18:08)
[2017-10-22 05:15] LABS: HEMATOCRIT 44.9 % (35.0-46.0); MEAN CELL VOLUME 91.9 FL (80.0-100.0); MEAN CORPUSCULAR HEMOGLOBIN 31.3 PG (27.0-34.0); PLATELET COUNT 312 TH/MM3 (150-450); RED BLOOD COUNT 4.88 MIL/MM3 (4.00-5.30); RED CELL DISTRIBUTION WIDTH 13.9 % (11.6-17.2); REVIEW FLAG FINAL; WHITE BLOOD COUNT 8.4 TH/MM3 (4.0-11.0)
[2017-10-22 05:37] LABS: BICARBONATE 23.8 MEQ/L (21.0-32.0); POTASSIUM 3.9 MEQ/L (3.5-5.1)
--- NOTE | 2017-10-22 08:14 | HHI.PR ---
Subjective Remarks spell of r arm 0/5 yest? now better Objective Vital Signs Date Time Temp Pulse Resp B/P (MAP) Pulse Ox O2 Delivery O2 Flow Rate FiO2 10/22/17 08:08 106 10/22/17 07:28 98.3 106 16 228/106 (146) 94 10/22/17 07:26 94 Room Air 10/22/17 06:11 104 10/22/17 04:06 107 10/22/17 03:29 105 15 182/108 (132) 93 10/22/17 02:47 104 10/22/17 00:49 94 10/21/17 23:30 93 10/21/17 23:25 93 10/21/17 23:25 97.6 99 14 219/95 (136) 95 10/21/17 22:41 95 10/21/17 21:58 98 21 10/21/17 20:00 97 10/21/17 19:00 98.2 97 15 207/98 (134) 96 10/21/17 19:00 96 Room Air 10/21/17 16:32 98 Nasal Cannula 2.00 10/21/17 16:00 84 10/21/17 16:00 97.9 84 18 200/86 (124) 98 I/O 10/21/17 10/21/17 10/21/17 10/22/17 10/22/17 10/22/17 07:00 15:00 23:00 07:00 15:00 23:00 Intake Total 0 ml 1434 ml Output Total 125 ml 250 ml Balance -125 ml 1184 ml Intake Oral 0 ml 480 ml IV Total 954 ml Output Urine Total 125 ml 250 ml # Voids 3 3 Result Diagram: 10/22/172 10/22/172 Other Results mri some mild inc in r viry infarct c/t prior mri Objective Remarks vff dss nl face sym lue 5-/5 lle ip 4+ left ta 3/5 rue and rle nl Assessment and Plan Assessment and Plan imp some episode of transient left side weakness yest i think for now change to xarelto as she was on three doses of eliquis b4 cva aned now possible tia on eliquis again and asa 81 mg so med team plz change to xarelto if stable neuro today and in am tomorrow could go back to rehab keep in bed today and oob in am run bp 180-200/90-100 today and in two days go to 160/80-90 keep ivf on today Eugenio Herrera MD Oct 22, 2017 08:14
[2017-10-22] MEDS: APIXABAN 5 MG TABLET PO SCH (08:22)
[2017-10-22] MEDS: ASPIRIN EC 81 MG TABEC PO SCH (08:22)
[2017-10-22] MEDS: DOCUSATE SODIUM 50 MG/SENNA 8.6 MG TAB PO SCH ×2 (08:22→21:22)
[2017-10-22] MEDS: FAMOTIDINE 20 MG TAB PO SCH ×2 (08:22→21:22)
[2017-10-22] MEDS ORDERED: PNEUMOCOCCAL POLYVALENT INJ 25 MCG/0.5 ML SYR IM ONE (10:00)
[2017-10-22] MEDS ORDERED: INFLUENZA VIRUS VACCINE (QUADRIVALENT) 0.5 ML SYR IM ONE (10:00)
[2017-10-22] MEDS ORDERED: hydrALAZINE HCL 20 MG/ML VIAL IV PUSH PRN (12:15)
[2017-10-22] MEDS ORDERED: LABETALOL HCL 100 MG/20 ML VIAL IV PUSH PRN (12:15)
--- NOTE | 2017-10-22 13:05 | HHI.CCPN ---
Subjective Remarks/Hospital Course 82yF recently admitted this week for new right MCA CVA with left-sided weakness , stable, sent to rehab. today in rehab was weaker on the left and unable to use left hand/leg. stroke alert called. deficits worse. taken to MRI: progression of infarct, no new infarct noted. severe hypertension with sbp 200s. emergent transfer to ICU. on my eval, patient denies additional complaints other than left-sided weakness. ROS negative. CCM consulted to evaluate and manage possible new stroke. full work-up already done last week. SUBJ 10/22: Lying in bed comfortably. D/w Dr. Herrera. He recommends starting Xarelto after stopping Eloquis. Also BP target SBP 180-200 to maintain cerebral perfusion. Patient is cooperative. Appears to be back to her baseline Objective Vital Signs Date Time Temp Pulse Resp B/P (MAP) Pulse Ox O2 Delivery O2 Flow Rate FiO2 10/22/17 12:00 93 10/22/17 11:00 98.6 15 224/105 (144) 97 10/22/17 07:26 Room Air 10/21/17 21:58 21 10/21/17 16:32 2.00 Intake and Output 10/22/17 10/22/17 10/23/17 08:00 16:00 00:00 Intake Total 1434 ml Output Total 250 ml Balance 1184 ml Result Diagram: 10/22/1744110/22/17441 Imaging MRI: progression/evolution of infarct previously seen, no new areas of diffusion restriction. Objective Remarks gen: elderly female, lying in bed heent: perrl. mmm. slight left facial droop noted. neck:no jvd. trachea midline. chest: nc o2. equal chest rise. cv: hypertensive sbp 220s on my eval. afib/flutter. HR 90s-100s. abd: soft, nondistended, nontender. no guarding. extr: distal pulses 2+. no edema. neuro: RASS 0. DAVEY: RUE 5/5 RLE 5/5 LUE 4/5 LLE 3/5 speech intact. sensation grossly intact. CN 2-12 grossly intact with exception of slight facial droop. A/P Assessment and Plan Assessment: 82yF with atrial fib/flutter and recent admission for CVA presented with new and worsening weakness concerning for new CVA vs. progression of recent CVA. Has been completely evaluated this week already. Admit to ICU. permissive hypertension. keep on ASA, stain, Eliquis. appreciate neuro recs. frequent neuro checks. bedside swallow. Acute CVA Advance diet as tolerated permissive hypertension, goal sbp 180 - 200 frequent neuro checks neurology Dr. Herrera Continue aspirin Hypertension - goal sbp 180-200 - prn hydralazine, labetalol for > 200 - Resume home metoprolol 50 q12 Atrial fibrillation - currently rate controlled. Resume metoprolol - Dc Eloquis, start Xarelto from 10/23/[address] Lebron request PT consult SCDs/oral anticoagulant pepcid Transfer to [facility] with Tele. Transfer back to [facility] once BP target lowered and cleared by Neuro Toribio Maria MD Oct 22, 2017 13:05
[2017-10-22] MEDS ORDERED: cloNIDine HCL 0.3 MG TAB PO PRN (14:45)
[2017-10-22] MEDS: ATORVASTATIN 40 MG TAB PO SCH (21:22)
[2017-10-22] MEDS: ENALAPRILAT 2.5 MG/2 ML VIAL IV PUSH PRN (23:35)
[2017-10-23] VITALS (7 sets, daily range): BP systolic 129–202; BP diastolic 62–96; PULSE 86–103; RESP 17–20; TEMP 97.2–98.3; O2SAT 92–96
[2017-10-23] MEDS: INSULIN NovoLIN REGULAR SUPPLEMENTAL SCALE SQ SCH ×5 (03:00→20:54)
[2017-10-23] MEDS: CHLORHEXIDINE GLUCONATE 2 % 1 PACK (2 CLOTHS) TOP SCH (03:59)
[2017-10-23] MEDS: SODIUM CHLOR 0.9% 1000 ML INJ 1,000 ML IV SCH ×2 (05:49→11:25)
[2017-10-23 06:17] LABS: HEMATOCRIT 45.5 % (35.0-46.0); MEAN CORPUSCULAR HGB CONC 34.8 % (32.0-36.0); PLATELET COUNT 306 TH/MM3 (150-450); RED BLOOD COUNT 4.95 MIL/MM3 (4.00-5.30); REVIEW FLAG FINAL
[2017-10-23 06:42] LABS: BICARBONATE 22.9 MEQ/L (21.0-32.0); POTASSIUM 3.7 MEQ/L (3.5-5.1)
[2017-10-23] MEDS: DOCUSATE SODIUM 50 MG/SENNA 8.6 MG TAB PO SCH ×2 (11:26→20:56)
[2017-10-23] MEDS: ASPIRIN EC 81 MG TABEC PO SCH (11:27)
[2017-10-23] MEDS: FAMOTIDINE 20 MG TAB PO SCH ×2 (11:27→20:56)
[2017-10-23] MEDS: RIVAROXABAN 20 MG TAB PO SCH (11:33)
--- NOTE | 2017-10-23 11:57 | HHI.PR ---
Subjective Remarks patient seen with at bedside right handed female awake and alert, no complains of headaches now able to raise left UE- above the chest- per this is an improvement rest of the extremities 0/5 speech clear and very interactive Objective Vitals Vital Signs Date Time Temp Pulse Resp B/P (MAP) Pulse Ox O2 Delivery O2 Flow Rate FiO2 10/23/17 08:08 97.2 102 20 157/74 (101) 96 10/23/17 05:29 98.3 94 17 129/62 (84) 96 10/23/17 00:30 98.2 103 17 202/94 (130) 95 10/22/17 21:00 98 10/22/17 20:39 98 Nasal Cannula 2.00 10/22/17 20:30 98.0 93 17 190/95 (126) 95 10/22/17 18:56 97.5 105 17 188/89 (122) 97 10/22/17 14:00 119 10/22/17 12:00 93 I/O 10/22/17 10/22/17 10/22/17 10/23/17 10/23/17 10/23/17 07:00 15:00 23:00 07:00 15:00 23:00 Intake Total 1434 ml 240 ml Output Total 250 ml Balance 1184 ml 240 ml Intake Oral 480 ml 240 ml IV Total 954 ml Output Urine Total 250 ml # Voids 3 9 Result Diagram: 10/23/1744 10/23/1744 Objective Remarks awake and alert, oriented x 3 speech clear anicteric, pupils equal no bruit regular rhythm abdomen soft, nontender extremities no edema, no calf tenderness motor LUE- 3/5 rest of the extremities 0/5 grossly no sensory deficits A/P Assessment and Plan 82yF with atrial fib/flutter and recent admission for CVA presented with new and worsening weakness concerning for new CVA vs. progression of recent CVA. Has been completely evaluated this week already. Admit to ICU. permissive hypertension. keep on ASA, stain, Eliquis. appreciate neuro recs. frequent neuro checks. bedside swallow. Acute CVA- with Left sided hemiplegia but LUE- able to raise to chest Advance diet as tolerated frequent neuro checks Neurology ff started on Xarelto Lipitor 40 mg hs Hypertension - prn hydralazine, labetalol for > 200 - Resume metoprolol at 25 mg po q 12 (was on 50 mg q 12)- for better rate control Atrial fibrillation- rate low 100s - Resume metoprolol at 25 mg po q 12 - Dc Eliquis, - started Xarelto - 10/23/[address] Lebron request - start metroprolol for rate control start at 25 mg po bid to allow for permissive hypertension post CVA PT consult SCDs/- on Xarelto pepcid will reconsult [facility] for comprehensive rehab Ekaterina Masters MD Oct 23, 2017 11:57
--- NOTE | 2017-10-23 14:12 | HHI.PR ---
Review/Management Diagnosis right hemisphere cva--exam stable. Diagnosis/Plan: Subjective Subjective Comments No acute events reported left leg weak without change. Active Medications Current Medications Medications (Trade) Dose Ordered Sig/Sofy Route Start Time Stop Time Status Last Admin (D50w (Vial) Inj) 25 ml UNSCH PRN IV PUSH 10/21/17 18:15 (NovoLIN R SUPPLEMENTAL SCALE) 1 ACHS AND 3AM SQ 10/21/17 21:00 10/22/17 11:41 Sodium Chloride 1,000 ml @ 84 mls/hr [id number] IV 10/21/17 18:04 10/23/17 11:25 (Zofran Inj) 4 mg Q6H PRN IV PUSH 10/21/17 18:15 (Duoneb Neb) 1 ampule Q2HR NEB PRN INH 10/21/17 18:15 Miscellaneous Information 1 Q361D XX 10/21/17 18:15 10/21/17 18:15 (Chlorhexidine 2% Cloth) 3 pack Taper DAILY@04 TOP 10/22/17 04:00 10/18/18 03:59 10/22/17 03:28 (Chlorhexidine 2% Cloth) 3 pack UNSCH PRN TOP 10/21/17 18:15 (Minoo-Colace) 1 tab BID PO 10/21/17 21:00 10/23/17 11:26 (Milk Of Magnesia Liq) 30 ml Q12H PRN PO 10/21/17 18:15 (Senokot) 17.2 mg Q12H PRN PO 10/21/17 18:15 (Dulcolax Supp) 10 mg DAILY PRN RECTAL 10/21/17 18:15 (Lactulose Liq) 30 ml DAILY PRN PO 10/21/17 18:15 (Ecotrin Ec) 81 mg DAILY PO 10/22/17 09:00 10/23/17 11:27 (Lipitor) 40 mg HS PO 10/21/17 21:00 10/22/17 21:22 (Pepcid) 20 mg BID PO 10/21/17 21:00 10/23/17 11:27 ([place] 5-325 Mg) 1 tab Q4H PRN PO 10/21/17 18:15 10/22/17 03:22 (Apresoline Inj) 20 mg Q4H PRN IV PUSH 10/22/17 12:15 10/22/17 12:59 (Trandate Inj) 20 mg Q4H PRN IV PUSH 10/22/17 12:15 (Xarelto) 20 mg DAILY PO 10/23/17 09:00 10/23/17 11:33 (Catapres) 0.3 mg Q6H PRN PO 10/22/17 14:45 (Vasotec Inj) 2.5 mg Q6H PRN IV PUSH 10/22/17 14:45 10/22/17 23:35 (Lopressor) 25 mg Q12HR PO 10/23/17 12:15 Allergies Allergies Coded Allergies No Known Allergies (Verified Allergy, Unknown, 10/18/17) Exam I&O / VS Vital Signs Date Time Temp Pulse Resp B/P (MAP) Pulse Ox O2 Delivery O2 Flow Rate FiO2 10/23/17 12:00 97.3 86 20 135/65 (88) 96 10/23/17 08:08 97.2 102 20 157/74 (101) 96 10/23/17 05:29 98.3 94 17 129/62 (84) 96 10/23/17 00:30 98.2 103 17 202/94 (130) 95 10/22/17 21:00 98 10/22/17 20:39 98 Nasal Cannula 2.00 10/22/17 20:30 98.0 93 17 190/95 (126) 95 10/22/17 18:56 97.5 105 17 188/89 (122) 97 Respiratory: Lungs CTA, Non-labored respirations, BS equal, Symmetrical expansion, No chest wall tenderness Cardiology: Normal rate, No murmur, No gallop, Intact pulses, Normal peripheral perfusion, Irregular Rhythm Musculoskeletal: ROM, Swelling Exam Comments alert, speech normal CN intact Motor 5/5 RUE and LLE. 4+/5 LUE, 4/5 LLE Objective Micro and Labs Laboratory Tests Test 10/23/17 05:44 White Blood Count 11.0 Red Blood Count 4.95 Hemoglobin 15.8 Hematocrit 45.5 Mean Corpuscular Volume 92.0 Mean Corpuscular Hemoglobin 32.0 Mean Corpuscular Hemoglobin Concent 34.8 Red Cell Distribution Width 14.0 Platelet Count 306 Mean Platelet Volume 8.4 Blood Urea Nitrogen 13 Creatinine 0.71 Random Glucose 107 Calcium Level 9.3 Sodium Level 135 Potassium Level 3.7 Chloride Level 105 Carbon Dioxide Level 22.9 Anion Gap 7 Estimat Glomerular Filtration Rate 79 Salo Julio PhD Oct 23, 2017 14:12
[2017-10-23] MEDS: METOPROLOL TARTRATE 25 MG TAB PO SCH ×2 (14:13→20:56)
[2017-10-23 14:36] LABS: HDL CHOLESTEROL 51.6 MG/DL (40.0-60.0)
[2017-10-23] MEDS: ATORVASTATIN 40 MG TAB PO SCH (20:56)
[2017-10-23] MEDS: ENALAPRILAT 2.5 MG/2 ML VIAL IV PUSH PRN (20:57)
[2017-10-24] VITALS: BP 175/91; PULSE 85; RESP 18; TEMP 98.1; O2SAT 96
[2017-10-24] MEDS: CHLORHEXIDINE GLUCONATE 2 % 1 PACK (2 CLOTHS) TOP SCH (02:45)
[2017-10-24] MEDS: INSULIN NovoLIN REGULAR SUPPLEMENTAL SCALE SQ SCH ×2 (02:45→08:00)
[2017-10-24 04:00] VITALS: BP 173/84; PULSE 85; RESP 18; TEMP 98.1; O2SAT 96
[2017-10-24] MEDS: SODIUM CHLOR 0.9% 1000 ML INJ 1,000 ML IV SCH (05:11)
[2017-10-24 06:22] LABS: HEMATOCRIT 43.9 % (35.0-46.0); MEAN CORPUSCULAR HEMOGLOBIN 31.6 PG (27.0-34.0); MEAN CORPUSCULAR HGB CONC 34.4 % (32.0-36.0); PLATELET COUNT 293 TH/MM3 (150-450); RED BLOOD COUNT 4.77 MIL/MM3 (4.00-5.30); RED CELL DISTRIBUTION WIDTH 13.9 % (11.6-17.2); REVIEW FLAG FINAL; WHITE BLOOD COUNT 10.6 TH/MM3 (4.0-11.0)
[2017-10-24 06:42] LABS: BICARBONATE 24.3 MEQ/L (21.0-32.0); POTASSIUM 3.6 MEQ/L (3.5-5.1)
[2017-10-24 08:30] VITALS: BP 191/97; PULSE 90; RESP 18; TEMP 98.2; O2SAT 95
[2017-10-24] MEDS: DOCUSATE SODIUM 50 MG/SENNA 8.6 MG TAB PO SCH (09:00)
[2017-10-24] MEDS: RIVAROXABAN 20 MG TAB PO SCH (09:22)
[2017-10-24] MEDS: FAMOTIDINE 20 MG TAB PO SCH (09:22)
[2017-10-24] MEDS: METOPROLOL TARTRATE 25 MG TAB PO SCH (09:22)
[2017-10-24] MEDS: ASPIRIN EC 81 MG TABEC PO SCH (09:22)
[2017-10-24] MEDS ORDERED: amLODIPine BESYLATE 5 MG TAB PO SCH (09:45)
--- NOTE | 2017-10-24 09:45 | HHI.PR ---
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 Objective Vitals Vital Signs Date Time Temp Pulse Resp B/P (MAP) Pulse Ox O2 Delivery O2 Flow Rate FiO2 10/24/17 04:00 98.1 85 18 173/84 (113) 96 10/24/17 00:00 98.1 85 18 175/91 (119) 96 10/23/17 20:00 98.2 89 18 202/91 (128) 92 10/23/17 16:57 95 21 10/23/17 15:02 97.5 88 20 176/96 (122) 96 10/23/17 12:00 97.3 86 20 135/65 (88) 96 I/O 10/23/17 10/23/17 10/23/17 10/24/17 10/24/17 10/24/17 07:00 15:00 23:00 07:00 15:00 23:00 Intake Total 240 ml 660 ml 1000 ml Balance 240 ml 660 ml 1000 ml Intake Oral 240 ml 660 ml IV Total 1000 ml # Voids 9 3 1 # Bowel Movements 2 3 Result Diagram: 10/24/1755 10/24/17 05 Objective Remarks awake and alert, oriented x 3 speech clear anicteric, pupils equal no bruit regular rhythm abdomen soft, nontender extremities no edema, no calf tenderness motor LUE- stronger- 3-4/5 LLE- able to move left leg and bended her knee but unable to raise entire leg against gravity grossly no sensory deficits A/P Assessment and Plan 82yF with atrial fib/flutter and recent admission for CVA presented with new and worsening weakness concerning for new CVA vs. progression of recent CVA. Has been completely evaluated this week already. Admit to ICU. permissive hypertension. keep on ASA, stain, Eliquis. appreciate neuro recs. frequent neuro checks. bedside swallow. Acute CVA- with Left sided weakness- increase strength and more movement on today's exam Advance diet as tolerated Neurology ff started on Xarelto Lipitor 40 mg hs Hypertension - prn hydralazine, labetalol for > 200 - Increase Lopressor to 25 mg po q 8 -start Amlodipine 5 mg daily Atrial fibrillation-in SR - increase metoprolol at 25 mg po q 8 - started Xarelto - PT consult SCDs/- on Xarelto pepcid Transfer to [place] today consult [facility] to ff patient Ekaterina Masters MD Oct 24, 2017 09:45
[2017-10-24] MEDS ORDERED: AMLO5 PO (09:59)
[2017-10-24] MEDS ORDERED: METO25TA3 PO (09:59)
[2017-10-24] MEDS ORDERED: XARE20TA PO (09:59)
[2017-10-24] MEDS ORDERED: CLON0.1T PO (10:00)
[2017-10-24 11:00] VITALS: PULSE 82
[2017-10-24 11:36] VITALS: BP 191/97; PULSE 90; RESP 18; TEMP 98.2; O2SAT 95
[2017-10-24 12:00] VITALS: PULSE 85; RESP 18; TEMP 97.6; O2SAT 95
--- NOTE | 2017-10-24 12:33 | HHI.PR ---
Review/Management Diagnosis right hemisphere cva--exam stable. Diagnosis/Plan: Subjective Subjective Comments No acute events reported feels left leg strength is improving Active Medications Current Medications Medications (Trade) Dose Ordered Sig/Sofy Route Start Time Stop Time Status Last Admin (D50w (Vial) Inj) 25 ml UNSCH PRN IV PUSH 10/21/17 18:15 (NovoLIN R SUPPLEMENTAL SCALE) 1 ACHS AND 3AM SQ 10/21/17 21:00 10/22/17 11:41 (Zofran Inj) 4 mg Q6H PRN IV PUSH 10/21/17 18:15 (Duoneb Neb) 1 ampule Q2HR NEB PRN INH 10/21/17 18:15 Miscellaneous Information 1 Q361D XX 10/21/17 18:15 10/21/17 18:15 (Chlorhexidine 2% Cloth) 3 pack Taper DAILY@04 TOP 10/22/17 04:00 10/18/18 03:59 10/22/17 03:28 (Chlorhexidine 2% Cloth) 3 pack UNSCH PRN TOP 10/21/17 18:15 (Minoo-Colace) 1 tab BID PO 10/21/17 21:00 10/23/17 20:56 (Milk Of Magnesia Liq) 30 ml Q12H PRN PO 10/21/17 18:15 (Senokot) 17.2 mg Q12H PRN PO 10/21/17 18:15 (Dulcolax Supp) 10 mg DAILY PRN RECTAL 10/21/17 18:15 (Lactulose Liq) 30 ml DAILY PRN PO 10/21/17 18:15 (Ecotrin Ec) 81 mg DAILY PO 10/22/17 09:00 10/24/17 09:22 (Lipitor) 40 mg HS PO 10/21/17 21:00 10/23/17 20:56 (Pepcid) 20 mg BID PO 10/21/17 21:00 10/24/17 09:22 ([place] 5-325 Mg) 1 tab Q4H PRN PO 10/21/17 18:15 10/22/17 03:22 (Apresoline Inj) 20 mg Q4H PRN IV PUSH 10/22/17 12:15 10/22/17 12:59 (Trandate Inj) 20 mg Q4H PRN IV PUSH 10/22/17 12:15 (Xarelto) 20 mg DAILY PO 10/23/17 09:00 10/24/17 09:22 (Catapres) 0.3 mg Q6H PRN PO 10/22/17 14:45 (Vasotec Inj) 2.5 mg Q6H PRN IV PUSH 10/22/17 14:45 10/23/17 20:57 (Lopressor) 25 mg Q8HR PO 10/24/17 14:00 (Norvasc) 5 mg DAILY PO 10/25/17 09:00 Allergies Allergies Coded Allergies No Known Allergies (Verified Allergy, Unknown, 10/18/17) Exam I&O / VS Vital Signs Date Time Temp Pulse Resp B/P (MAP) Pulse Ox O2 Delivery O2 Flow Rate FiO2 10/24/17 11:36 98.2 90 18 191/97 (128) 95 10/24/17 04:00 98.1 85 18 173/84 (113) 96 10/24/17 00:00 98.1 85 18 175/91 (119) 96 10/23/17 20:00 98.2 89 18 202/91 (128) 92 10/23/17 16:57 95 21 10/23/17 15:02 97.5 88 20 176/96 (122) 96 Respiratory: Lungs CTA, Non-labored respirations, BS equal, Symmetrical expansion, No chest wall tenderness Cardiology: Normal rate, No murmur, No gallop, Intact pulses, Normal peripheral perfusion, Irregular Rhythm Musculoskeletal: ROM, Swelling Exam Comments alert, speech normal CN intact Motor 5/5 RUE and LLE. 5/5 LUE, 4/5 LLE Objective Micro and Labs Laboratory Tests Test 10/24/17 05:55 White Blood Count 10.6 Red Blood Count 4.77 Hemoglobin 15.1 Hematocrit 43.9 Mean Corpuscular Volume 92.0 Mean Corpuscular Hemoglobin 31.6 Mean Corpuscular Hemoglobin Concent 34.4 Red Cell Distribution Width 13.9 Platelet Count 293 Mean Platelet Volume 8.0 Blood Urea Nitrogen 11 Creatinine 0.73 Random Glucose 99 Calcium Level 9.0 Sodium Level 137 Potassium Level 3.6 Chloride Level 105 Carbon Dioxide Level 24.3 Anion Gap 8 Estimat Glomerular Filtration Rate 76 Salo Julio PhD Oct 24, 2017 12:33
[2017-10-24] MEDS ORDERED: cloNIDine HCL 0.1 MG TAB PO PRN (13:00)
[2017-10-24] MEDS ORDERED: METOPROLOL TARTRATE 25 MG TAB PO SCH (14:00)
[2017-10-25] MEDS ORDERED: amLODIPine BESYLATE 5 MG TAB PO SCH (09:00)
--- NOTE | 2017-10-25 13:45 | HHI.DS ---
Discharge Summary Admission Date Oct 21, 2017 at 15:55 Discharge Date: Oct 24, 2017 Admitting Diagnosis (1) Acute right MCA stroke ICD Code: I63.511 - Cerebral infarction due to unspecified occlusion or stenosis of right middle cerebral artery Diagnosis: Principal Status: Acute Procedures none Brief History - From Admission 82yF recently admitted this week for new right MCA CVA with left-sided weakness , stable, sent to rehab. today in rehab was weaker on the left and unable to use left hand/leg. stroke alert called. deficits worse. taken to MRI: progression of infarct, no new infarct noted. severe hypertension with sbp 200s. emergent transfer to ICU. on my eval, patient denies additional complaints other than left-sided weakness. ROS negative. CCM consulted to evaluate and manage possible new stroke. full work-up already done last week. CBC/BMP: 10/24/17 0555 10/24/17 0555 Significant Findings Laboratory Tests Test 10/23/17 05:44 10/24/17 05:55 Hemoglobin 15.8 GM/DL (11.6-15.3) Random Glucose 107 MG/DL (74-106) Sodium Level 135 MEQ/L (136-145) Estimat Glomerular Filtration Rate 79 ML/MIN (>89) 76 ML/MIN (>89) Cholesterol Level 205 MG/DL (120-200) LDL Cholesterol 140 MG/DL (0-99) PE at Discharge awake and alert, oriented x 3 speech clear anicteric, pupils equal no bruit regular rhythm abdomen soft, nontender extremities no edema, no calf tenderness motor LUE- stronger- 3-4/5 LLE- able to move left leg and bent her knee but unable to raise entire leg against gravity grossly no sensory deficits Pt update on day of discharge awake and alert, clear speech strength improving motivated with PT Hospital Course 82yF with atrial fib/flutter and recent admission for CVA presented with new and worsening weakness concerning for new CVA vs. progression of recent CVA. Has been completely evaluated this week already. Admit to ICU. permissive hypertension. keep on ASA, stain, Eliquis. appreciate neuro recs. frequent neuro checks. bedside swallow. Acute CVA- with Left sided weakness- increase strength and more movement on today's exam Advance diet as tolerated Neurology ff started on Xarelto Lipitor 40 mg hs Hypertension - prn hydralazine, labetalol for > 200 - Increase Lopressor to 25 mg po q 8 -start Amlodipine 5 mg daily Atrial fibrillation-in SR - increase metoprolol at 25 mg po q 8 - started Xarelto - PT consult SCDs/- on Xarelto pepcid Transfer to [place] today consult H to ff patient Pt Condition on Discharge: Stable Discharge Disposition: Rehab Inpatient Discharge Time: <= 30 minutes Discharge Instructions DIET: Follow Instructions for: Heart Healthy Diet Speech Therapy-Diet Recommends: Regular Activities you can perform: Weight Bearing as Amilcar, See Additionl Instruction Other Activity Instructions: daily PT New Medications: Clonidine (Clonidine) 0.1 Mg Tab 0.1 MG PO Q6HR PRN for SBP>160, DBP>90, #60 TAB 0 Refills Amlodipine (Norvasc) 5 Mg Tab 5 MG PO DAILY for htn for 30 Days, #30 TAB Metoprolol Tartrate (Metoprolol Tartrate) 25 Mg Tab 25 MG PO Q8HR for hTN for 30 Days, #90 TAB Rivaroxaban (Xarelto) 20 Mg Tab 20 MG PO DAILY for CVA/AFIB for 30 Days, #30 TAB 3 Refills Continued Medications: Aspirin DR (Aspirin EC) 81 Mg Tabdr 81 MG PO DAILY for Prevent Blood Clot, #30 TAB 0 Refills Atorvastatin (Atorvastatin) 40 Mg Tab 40 MG PO HS for Cholesterol Management, #30 TAB 11 Refills Famotidine (Famotidine) 20 Mg Tab 20 MG PO BID, #60 TAB Ekaterina Masters MD Oct 25, 2017 13:45
== END 2017-10-24 15:02 | DRG 65 ==
LOC: N03B 15:55 → N05A 10-22 15:19
PROVIDERS: ADMIT Internal Medicine; ATTEND Internal Medicine
DX: I63.511 Cerebral infarction due to unspecified occlusion or stenosis of right middle cerebral artery (principal); I69.354 Hemiplegia and hemiparesis following cerebral infarction affecting left non-dominant side; I48.91 Unspecified atrial fibrillation; I16.0 Hypertensive urgency; I10 Essential (primary) hypertension; E78.5 Hyperlipidemia, unspecified
CPT/HCPCS: 80048; 80061; 82948; 85027; 87641; 94150; 94640; 94667; 94668; J0360; J7030